=== PATIENT | female | born 1950 | race Caucasian/White ===

== ENCOUNTER 2025-01-03 15:08 | Outpatient (AMB) | payer MEDICARE, SELFPAY ==
--- NOTE | 2025-01-03 15:07 | A.OFFVIS_ITS ---
Vital Signs 01/03/25 15:09 Height 5 ft 9 in Weight 182 lb 15.739 oz BMI 27.0 BP 124/70 Blood Pressure Location Lt brachial Position Sitting Pulse 87 Pulse Source Pulse Oximeter Pulse Oximetry (%) 95 Oxygen Delivery Method Room Air Intake Visit Reasons: Emphysema Food Preparation Supervisor Required: No Accompanied by: Self / Same As Patient Allergies No Known Allergies Allergy (Verified 01/03/25 15:10) HPI Comments Details: The patient is here for pulmonary evaluation. The patient is a 74 year woman with a known history of smoking in addition to COPD. The patient was taking part of the lung cancer screening program when she was found to have a nodular density on the left. 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 The biopsy also showed pulmonary fibrosis due to smoking and also emphysema. The patient was able to quit for some period of time but then she picked it up again. She has a hard time letting go. As far as inhalers she is not using any inhalers. She does have a dyspnea on exertion. [id number] severity. She lives in a 2nd story apartment so she is able to go up the stairs but she would have a hard time going up further as floors. The patient does have a cough which is congested in nature. Consistent with chronic bronchitis. The patient does have some diminished breath sounds with a prolonged expiratory phase. She will benefit from starting bronchodilator therapy. I will start her on Wixela at this time. The patient also should undergo pulmonary function studies will have him done in June since she had them done in June 2024. She will return done. As far as smoking cessation she will start cutting down. She can try the Nicotrol nasal spray to provide her some relief with the cravings. [facility] Medical History (Updated 01/03/25 @ 22:11 by Goran Morillo MD) Tobacco dependence COPD (chronic obstructive pulmonary disease) Lung cancer Social History (Updated 01/03/25 @ 15:11 by Geetha Kirk CMA) Patient Tobacco Use Status: Current everyday Tobacco user Review of Systems Const Denies fever(s) Eyes Reports no additional complaints ENT Reports nasal congestion Card Denies chest pain and Reports dyspnea on exertion Resp Reports chest congestion, Reports cough and Reports dyspnea on exertion GI Reports no additional complaints Musc Reports no additional complaints Skin/Breast Denies rash Neuro Reports no additional complaints Endo Reports no additional complaints Jose/Lymph Reports no additional complaints Aller/Immun Reports no additional complaints Physical Exam Vital Signs: Last Vital Signs Pulse 87 01/03/25 15:09 BP 124/70 01/03/25 15:09 Pulse Ox 95 01/03/25 15:09 Oxygen Delivery Method Room Air 01/03/25 15:09 BMI result Body Mass Index 27.0 Const General: comfortable Orientation/consciousness: patient oriented x3 HEENT Head: Yes normocephalic Neck Neck: Yes supple Chest Chest palpation & inspection: normal inspection of the chest Resp Effort & Inspection: normal respiratory effort and prolonged expiratory phase Auscultation: diminished lung sounds Cardio Rate: regular rate Rhythm: regular rhythm Heart sounds: S1 normal heart sound present and S2 normal heart sound present GI Palpation (GI): Soft to palpation General: Yes no CVA tenderness Back/Spine/Pelvis Back: no CVA tenderness Skin General skin exam: no rashes or lesions noted Neuro General: patient oriented x3 Extrem General: Yes no clubbing, cyanosis or edema Assessment & Plan Assessment & Plan (1) Lung cancer: Code(s): C34.90 - Malignant neoplasm of unspecified part of unspecified bronchus or lung Category: Medical Qualifiers: Laterality: left Lung location: unspecified part of lung Qualified Code(s): C34.92 - Malignant neoplasm of unspecified part of left bronchus or lung (2) COPD (chronic obstructive pulmonary disease): Code(s): J44.9 - Chronic obstructive pulmonary disease, unspecified Category: Medical Qualifiers: COPD type: chronic bronchitis Chronic bronchitis type: mucopurulent Qualified Code(s): J41.1 - Mucopurulent chronic bronchitis (3) Tobacco dependence: Code(s): F17.200 - Nicotine dependence, unspecified, uncomplicated Category: Medical Plan Start Wixela Consider YARA Tobacco cessation Nicotrol nasal spray F/U 4-6 months with PFTs Orders: Orders PFT pulmonary function test 06/29/25 J41.1 - Mucopurulent chronic bronchitis Medications: New nicotine (Nicotrol NS) administer into each nostril 1 spray intranasal Q4H PRN 40 mL 6RF nicotine cravings 30 days fluticasone propion-salmeterol 250-50 mcg/dose (Wixela Inhub) 1 inh inhalation Q12H 60 ea 11RF 30 days Coding Level of Care Code New Pt Level 4 (94020) Diagnoses Malignant neoplasm of left lung, unspecified part of lung C34.92 Laterality: left Lung location: unspecified part of lung Mucopurulent chronic bronchitis J41.1 COPD type: chronic bronchitis Chronic bronchitis type: mucopurulent Tobacco dependence F17.200 Time Spent (min) 36
[2025-01-03 15:09] VITALS: BP 124/70; PULSE 87; O2SAT 95; BMI 27.0
--- OUTSIDE RECORDS SUMMARY | 2025-01-03 17:29 | XMS_ITS ---
Author Organization [facility] Address [address] [place] [address] Phone Care Team Providers Care Line Up Machine Operator Name Role Phone Bayron Barkley MD Primary Care Provider [phone] Active Problems Problem Noted Date Diagnosed Date Atrial fibrillation (CMS/HCC V24, CMS/HCC V28) 0 08/10/2024 Assessment & Plan (11/23/2024 8:07 AM EDT): Patient had intermittent episodes of atrial fibrillation postoperatively. EKG done in the office today shows normal sinus rhythm with a well-controlled rate of 73 bpm. She remains on Eliquis for [id number] score of 3. She denies abnormal bruising or bleeding. No change to current medical therapy, continue Eliquis and diltiazem as prescribed. Assessment & Plan (08/11/2024 10:20 AM EDT): Patient had intermittent episodes of atrial fibrillation postoperatively. EKG done in the office today shows a normal sinus rhythm with a rate of 70 bpm. She is on Eliquis for [id number] score of 3. She denies abnormal bruising or bleeding. I discussed with the patient the risks versus benefits of continuing on anticoagulation. She was asymptomatic when in A-fib. I recommended continuing with Eliquis and diltiazem as prescribed. She did have some concerns about affordability of Eliquis and I discussed alternative of Coumadin. She would like to continue on Eliquis for now. I recommended meeting with a DOE counselor at her local [facility] who may be able to assist her in obtaining part D Medicare coverage that suits her needs best. History of lung cancer 07/29/2024 Assessment & Plan (07/29/2024 9:01 AM EDT): Ms. Caro is a 74-year-old female who had a robotic left upper lobectomy on July 16, 2024. She did develop paroxysmal atrial fibrillation postoperatively and was sent home on Eliquis. Postoperative pathology shows a stage Ib (pT2a, pN0) squamous cell carcinoma. The patient appears to be healing well from surgery. There are no signs or symptoms of active infection or significant complication. Her pathology was discussed at length during this visit. I will be referring the patient to medical oncology for discussion regarding adjuvant treatment. I also discussed surveillance and survivorship with the patient. The patient will be having CT surveillance every 6 months for the first 2 years following her diagnosis, then annually. She will be seen in the office after each CT scan as part of her surveillance protocol. I will arrange for her first surveillance chest CT scan to be done in December 2024 with a follow-up visit after. Preoperative evaluation to thad kime out surgical contraindication 07/15/2024 Assessment & Plan (07/15/2024 5:08 PM EDT): She is scheduled to have surgery for resection of a lung nodule which is suspicious for lung cancer tomorrow. She has no symptoms to suggest angina or heart failure. The surgery itself carry moderate risk but functional capacity is adequate. Despite severe coronary artery calcification, I will hold further ischemia workup to avoid delay of her surgery. She never had a cardiac imaging previously. I will schedule echocardiogram. Echocardiogram showed normal biventricular size and systolic function without obvious disease. Overall, she is cleared for surgery from a cardiac standpoint view. Coronary artery calcification 07/15/2024 Assessment & Plan (11/23/2024 8:08 AM EDT): LDCT scan demonstrated severe coronary artery calcifications. She had a pharmacological nuclear stress test August 2024. She had no chest pain or EKG changes consistent with ischemia and myocardial perfusion imaging showed no significant perfusion defects after CT attenuation correction was applied. She denies anginal symptoms. No change to current medical therapy, continue aspirin and atorvastatin as prescribed. Continue with efforts to follow a low fat, heart healthy diet, increase exercise, stopping smoking and maintain a healthy weight to maximize risk reduction. Assessment & Plan (08/11/2024 10:21 AM EDT): LDCT scan demonstrated severe coronary artery calcifications. She is not experiencing any symptoms to suggest angina. She is still recovering from lung surgery. She does have a longstanding chronic shortness of breath with exertion. I will order an exercise nuclear stress test to be done in about 1 month to assess for coronary insufficiency. Low threshold to convert to a pharmacological stress test if she is unable to tolerate the treadmill. I have asked her to start low-dose aspirin and continue on atorvastatin as prescribed. Assessment & Plan (07/15/2024 5:08 PM EDT): She will need a stress test after recovery from surgery. Will continue statin. Will start aspirin after surgery. Other hyperlipidemia 07/15/2024 Assessment & Plan (07/15/2024 5:08 PM EDT): Continue high-dose statin. Pulmonary nodule 03/23/2024 Overview (03/23/2024): She was informed that a follow-up CT was recommended in 3 months. She will be hearing from our office with the above diagnostic testing and will be scheduled for an appointment with an TOMEKA in our office to discuss the CT scan results and further plan. Assessment & Plan (07/15/2024 2:16 PM EDT): Orders: Ambulatory referral to Cardiology Current Treatment and Therapy Plans No current plan information found. Past Treatment and Therapy Plans No past plan information found. Lifetime Dose Tracking * Chemical Lifetime Dose Automatic Entry Manual Entr y CTDIvol 9.66 mGy 9.66 mGy 0 mGy Resolved Problems Problem Noted Date Diagnosed Date Resolved Date Lung cancer ([facility] V24, [facility] V28) 07/16/2024 07/29/2024
--- OUTSIDE RECORDS SUMMARY | 2025-01-03 17:29 | XMS_ITS ---
Author Name [facility] Organization Unknown Encounters Encounter Type Encounter Reason Primary Diagnosis Location Date Emergency Unspecified fall, initial encounter Unspecified fall, initial encounter [facility] 09/08/2023 Care Team Organization Name Specialty Phone Email Start Date End Da te [facility] 09/09/2023 06/16/2024 [facility] 09/09/2023
--- OUTSIDE RECORDS SUMMARY | 2025-01-03 17:29 | XMS_ITS | Clinical Summary ---
Author Organization [facility] Address [address] [place] [id number] Care Team Providers Care Radiosonde Specialist Name Role Phone Bayron Barkley MD Primary Care Provider [phone] Allergies No known active allergies Medications acetaminophen (TYLENOL) 325 MG tablet Take 3 tablets (975 mg total) by mouth 3 times daily (every 8 hours) as needed for mild pain. 63 tablet 09/09/2023 Active Immunizations Immunization Administration Dates Next Due Tdap 09/08/2023 Social History Tobacco Use Types Packs/Day Years Used Date Smoking Tobacco: Never Assessed Comments No Sex and Gender Information Value Date Recorded Sex Assigned at Female 09/09/2023 12:03 AM EDT Legal Sex Female 9:50 PM EDT Gender Identity Female 09/09/2023 12:03 AM EDT Sexual Orientation Not on file Last Filed Vital Signs Vital Sign Reading Time Taken Comments Blood Pressure 130/70 09/09/2023 12:09 AM EDT Pulse 83 09/09/2023 12:09 AM EDT Temperature 36.4 C (97.6 F) 09/08/2023 9:58 PM EDT Respiratory Rate 20 09/09/2023 12:09 AM EDT Oxygen Saturation 95% 09/09/2023 12:09 AM EDT Inhaled Oxygen Concentration - - Weight 86.2 kg (190 lb) 09/08/2023 9:58 PM EDT Height 177.8 cm (5' 10 ) 09/08/2023 9:58 PM EDT Body Mass Index 27.26 09/08/2023 9:58 PM EDT Plan of Treatment Health Maintenance Due Date Last Done Comments Advance Care Planning 1950 Hepatitis C Virus Screening 1950 Pneumococcal Vaccines 50+ (1 of 2 - PCV) 1967 Zoster (Shingles) Vaccine (1 of 2) 1998 DXA Bone Density (Females,Ag es 65 and older) 2013 RSV Vaccine 60 years and old er and Patients (1 - 1-dose 75+ series) 2023 Influenza Vaccine 10/29/2024 COVID-19 Vaccine (2 - 2024-2 6 season) 2024 03/03/2021 DTaP/Tdap/Td Vaccines (2 - T d or Tdap) 09/07/2033 09/08/2023 Hepatitis B Vaccines Aged Out No long er eligible based on patient's age to complete this topic Insurance [employer] Care Teams Radiosonde Specialist Relationship Specialty Start Date End Date Bayron Barkley MD [address] [place] [address] PCP - General Internal Medicine 09/09/23
--- OUTSIDE RECORDS SUMMARY | 2025-01-03 17:29 | XMS_ITS | Clinical Summary ---
Author Organization [facility] Address [address] [place] [address] Phone Care Team Providers Care Physician Relations Specialist Name Role Phone Bayron May MD Primary Care Provider [phone] Allergies No known active allergies Medications atorvastatin (LIPITOR) 40 mg tablet Take 40 mg by mouth daily. Active apixaban (ELIQUIS) 5 mg tablet Take 1 tablet (5 mg total) by mouth 2 (two) times a day. 60 tablet 11 08/11/2024 Active dilTIAZem CD (CARDIZEM CD) 180 mg 24 hr capsule Take 1 capsule (180 mg total) by mouth 1 (one) time each day. 90 each 3 08/11/2024 Active aspirin 81 mg EC tablet Take 1 tablet (81 mg total) by mouth 1 (one) time each day. 08/11/2024 Active Active Problems Problem Noted Date Diagnosed Date Atrial fibrillation (CMS/HCC V24, CMS/HCC V28) 0 08/10/2024 Assessment & Plan (11/23/2024 8:07 AM EDT): Patient had intermittent episodes of atrial fibrillation postoperatively. EKG done in the office today shows normal sinus rhythm with a well-controlled rate of 73 bpm. She remains on Eliquis for DYP0KH2-MANk score of 3. She denies abnormal bruising or bleeding. No change to current medical therapy, continue Eliquis and diltiazem as prescribed. Assessment & Plan (08/11/2024 10:20 AM EDT): Patient had intermittent episodes of atrial fibrillation postoperatively. EKG done in the office today shows a normal sinus rhythm with a rate of 70 bpm. She is on Eliquis for [id number]-XRWu score of 3. She denies abnormal bruising [...] for now. I recommended meeting with a NEREYDA counselor at her local [facility] who may be able to assist her in obtaining part D Medicare coverage that suits her needs best. History of lung cancer 07/29/2024 Assessment & Plan (07/29/2024 9:01 AM EDT): Ms. Espinosa is a 74-year-old female who had a [...] PM EDT): Orders: Ambulatory referral to Cardiology Resolved Problems Problem Noted Date Diagnosed Date Resolved Date Lung cancer ([facility] V24, [facility] V28) 07/16/2024 07/29/2024 Encounters Date Type Department Care Team Description 01/03/2025 Telephone Lung Screening Program - [place] [address] [place] [address] Yolanda Blair [place] 11/23/2024 7:40 AM EDT Office Visit [facility] [address] [facility] [address] [place] [phone] Loree Saucedo NP Coronary artery calcification (Primary Dx); Atrial fibrillation, unspecified type ([facility] V24, [facility] V28) from Last 3 Months Surgical History Surgery Date Site/Laterality Comments CATARACT EXTRACTION COLONOSCOPY LUNG LOBECTOMY 07/16/2024 Left AMILCAR wedge / lobectomy Medical History Medical History Date Comments Hypercholesterolemia Lung nodule left upper lobe Lung cancer ([facility] V24, [facility] V28) AMILCAR Family History Medical History Relation Name Comments Breast cancer Daughter Breast cancer Mother's Sister Relation Name Status Comments Daughter Mother's Sister Alive Social History Tobacco Use Types Packs/Day Years Used Date Smoking Tobacco: Every Day Cigarettes Smokeless Tobacco: Never Tobacco Cessation:Ready to Q uit: Not Asked; Counseling Given: Not Answered Passive Exposure Comments: quit a couple days ago Interpersonal Safety Answer Date Record ed Physical Abuse Unrecognized value 07/16/2024 Verbal Abuse Unrecognized value 07/16/2024 Comments No Sex and Gender Information Value Date Recorded Sex Assigned at Female 03/11/2024 1:15 PM EST Legal Sex Female 6:05 PM EST Gender Identity Female 03/11/2024 1:15 PM EST Sexual Orientation Lesbian or Briseno 07/16/2024 9: 19 AM EDT Obstetrics History Para Term AB IAB SAB Ectopic Multiple Livin g Live Births 2 Last Filed Vital Signs Vital Sign Reading Time Taken Comments Blood Pressure 106/60 11/23/2024 7:40 AM EDT Pulse 82 11/23/2024 7:40 AM EDT Temperature 36.6 C (97.9 F) 08/11/2024 1:54 PM EDT Respiratory Rate 20 07/20/2024 3:45 PM EDT Oxygen Saturation 94% 11/23/2024 7:40 AM EDT Inhaled Oxygen Concentration - - Weight 82.6 kg (182 lb) 11/23/2024 7:40 AM EDT Height 175.3 cm (5' 9 ) 11/23/2024 7:40 AM EDT Body Mass Index 26.88 11/23/2024 7:40 AM EDT Plan of Treatment Upcoming Encounters Date Type Department Care Team (Late st Contact Info) Description 01/24/2025 2:00 PM EDT Appointment [facility] CT Scan [address] [place] [address] 01/31/2025 10:00 AM EST Office Visit Thoracic Surgery - [place] [address] [address] Marylu Loaiza PA [address] [address] 02/18/2025 9:45 AM EST Office Visit [facility] Hematology Oncology [address] [place] [address] Michael Wright MD [address] [place] [address] Health Maintenance Due Date Last Done Comments Pneumococcal Vaccine: 50+ Years (1 of 2 - PCV) 1969 Cholesterol Screening (Lipid Panel) 03/10/2022 Hepatitis C Screening 03/10/2022 Medicare Annual Wellness Visit 03/10/2022 Social Influencers of Health Screening 03/10/2022 RSV Immunization Adult Patients (1 - 1-dose 75+ series) 2023 Depression Screening 03/31/2024 COVID-19 Vaccine ( season) 2024 03/03/2021, 08/05/2020, 07/08/2020 Influenza Vaccine (#1) 2024 Falls Risk Assessment 07/20/2025 07/20/2024 Hypertension/CHF/CAD Annual BMP Blood Test 07/20/2025 07/20/2024, 07/18/2024, 07/16/2024, Additional history exists Osteoporosis Screening (Bone Density Screening) 10/15/2032 10/15/2022 DTaP,Tdap,and Td Vaccines (2 - Td or Tdap) 09/07/2033 09/08/2023 Hepatitis A Vaccines Aged Out 03/16/2018 No long er eligible based on patient's age to complete this topic Zoster Vaccines Completed 03/27/2021, 12/31/2020 Breast Cancer Screening Discontinued 04/12/19, 10/15/2022, 06/10/2018 HIB Vaccines Aged Out No longer eligi ble based on patient's age to complete this topic HPV Vaccines Aged Out No longer eligi ble based on patient's age to complete this topic Hepatitis B Vaccines Aged Out No long er eligible based on patient's age to complete this topic IPV Vaccines Aged Out No longer eligi ble based on patient's age to complete this topic MMR Vaccines Aged Out No longer eligi ble based on patient's age to complete this topic Meningococcal ACWY Vaccine Aged Out N o longer eligible based on patient's age to complete this topic Meningococcal B Vaccine Aged Out No l onger eligible based on patient's age to complete this topic RSV Immunization Patients Under 20 months Aged Out No longer eligible based on patient's age to complete this topic Varicella Vaccines Aged Out No longer eligible based on patient's age to complete this topic Medical Devices Implanted Type Area Milling Operator Device Identifier Shelf Expiration Date Model / Serial / Lot Sealant Fibrin Vistaseal 10ml - [id number] - [id number] Implanted:Qty: 1 on 07/16/2024 by Татьяна Kirkland MD at [facility] Hemostasis Left: Chest [employer] 01/26/2026 VST10 / [id number] / [id number] Drsg Hemostat 4x8in Abs Ster Surgicel - Sn/A - [id number] Implanted:Qty: 1 on 07/16/2024 by Татьяна Kirkland MD at [facility] Hemostasis Left: Chest [employer] 1952 / N/A / N/A Sealant Progel Air Pleural 4ml - Sn/A - [id number] Implanted:Qty: 1 on 07/16/2024 by Татьяна Kirkland MD at [facility] [employer] Left: Chest CR BARD - [employer]OL [employer] 12/29/2025 [id number] / N/A / [id number] Procedures Procedure Name Priority Date/Time Associated Diagnosis Comments ECG 12-LEAD Routine 11/23/2024 8:09 AM EDT Coronary artery calcification Atrial fibrillation, unspecified type (CMS/HCC V24, CMS/HCC V28) BASIC METABOLIC PANEL Routine 07/20/2024 5:40 AM EDT MG MAMMO DIGITAL SCREENING W ABHILASH BILAT Routine 04/12/2024 7:25 AM EST Encounter for screening mammogram for breast cancer KAI DEXA AXIAL SKELETON Routine 10/15/2022 10:02 AM EDT Other specified disorders of bone density and structure, other site from Last 3 Months or Most Recently Relevant to Health Maintenance Results * ECG 12 lead (11/23/2024 8:09 AM EDT) Ventricular Rate ECG 73 BPM GEMUSE Atrial Rate 73 BPM GEMUSE P-R Interval 200 ms GEMUSE QRS Duration 90 ms GEMUSE Q-T Interval 394 ms GEMUSE QTc 434 ms GEMUSE P Wave [place] 46 degrees GEMUSE R [place] 58 degrees GEMUSE T [place] 59 degrees GEMUSE ECG Interpretation Normal sinus rhythm Normal ECG When compared with ECG of 11-AUG-2024 09:38, No significant change was found Confirmed by Carlos SALGADO JOHN ([id number]) on 11/28/2024 4:50:28 PM GEMUSE 11/23/2024 8:01 AM EDT 11/28/2024 4:50 PM EDT Loree Lewis HEADLINER INSTALLER ECG ORDERABLES Edited Result - Final GEMUSE * (ABNORMAL) Basic metabolic panel (07/20/2024 5:40 AM EDT) Sodium 139 133 - 145 mmol/L LAB CHEMISTRY METHOD 07/20/2024 6:48 AM [facility] Potassium 4.1 3.5 - 5.5 mmol/L LAB CHEMISTRY METHOD 07/20/2024 6:48 AM [facility] Chloride 105 96 - 110 mmol/L LAB CHEMISTRY METHOD 07/20/2024 6:48 AM [facility] CO2 28 21 - 32 mmol/L LAB CHEMISTRY METHOD 07/20/2024 6:48 AM [facility] Anion Gap 6 3 - 11 LAB CHEMISTRY METHOD 07/20/2024 6:48 AM [facility] Glucose 110(H) 70 - 100 mg/dL LAB CHEMISTRY METHOD 07/20/2024 6:48 AM [facility] BUN 14 5 - 25 mg/dL LAB CHEMISTRY METHOD 07/20/2024 6:48 AM [facility] Creatinine 0.90 0.50 - 1.10 mg/dL LAB CHEMISTRY METHOD 07/20/2024 6:48 AM [facility] eGFR 66 >=60 mL/min/1. 73m2 LAB CHEMISTRY METHOD 07/20/2024 6:48 AM [facility] Comment:Calculation based on the Chronic Kidney Disease Epidemiology Collaboration (CKD-EPI) equation refit without adjustment for race. BUN/Creatinine Ratio 15.6 LAB CHEMISTRY METHOD 07/20/2024 6:48 AM [facility] Calcium 8.8 8.5 - 10.5 mg/dL LAB CHEMISTRY METHOD 07/20/2024 6:48 AM [facility] Blood Venous blood specimen / Unknown Venipuncture / Unknown 07/20/2024 5:40 AM EDT 07/20/2024 6:13 AM EDT us Rui Perry MD LAB BLOOD ORDERABLES Final Resul t [facility] [address] [facility] [place] [address], [place] [phone] * MG Mammo Digital Screening w Abhilash bilat (04/12/2024 7:25 AM EST) Anatomical Region Laterality Modality Breast Bilateral Mammography 04/12/2024 8:58 AM EST Impressions 04/12/2024 9:04 AM EST No mammographic evidence of malignancy. No suspicious interval change. A negative mammogram in the presence of a clinically suspicious palpable abnormality does not preclude the possibility of malignancy or alter the indications for biopsy. ASSESSMENT: BI-RADS 1: NEGATIVE RECOMMENDATION(S): 1: Routine screening mammogram BILATERAL in 1 year. -------- FINAL REPORT -------- Dictated By: Roshan Montaño Dictated Date: 04/12/2024 08:58 ET Assigned Physician: Roshan Montaño Reviewed and Electronically Signed By: Roshan Montaño Signed Date: 04/12/2024 09:04 ET Workstation ID: [id number] Transcribed By: Self Edit Transcribed Date: 04/12/2024 08:58 ET Narrative 04/12/2024 9:04 AM EST EXAM: SCREENING MAMMOGRAPHY, BILATERAL HISTORY: SCREENING. Family history of breast cancer; daughter, maternal aunt COMPARISON: 10/15/2022 TECHNIQUE: Synthesized CC and MLO projections of each breast. Tomosynthesis of each breast in the CC and MLO projections. ADDITIONAL IMAGING: None Computer-aided detection was employed with the iCAD profound AI 3-D. TISSUE DENSITY: There are scattered areas of fibroglandular density. (BI-RADS category B) FINDINGS: RIGHT BREAST: No suspicious mass. No suspicious calcification. No distortion. No additional suspicious right breast findings LEFT BREAST: No suspicious mass. No suspicious calcification. No distortion. An asymmetry in the superficial outer left breast is less prominent than 10/15/2022. Procedure Note Roshan Montaño MD - 04/12/2024 EXAM: SCREENING MAMMOGRAPHY, BILATERAL HISTORY: SCREENING. Family history of breast cancer; daughter, maternalaunt COMPARISON: 10/15/2022 TECHNIQUE: Synthesized CC and MLO projections of each breast.Tomosynthesis of each breast in the CC and MLO projections. ADDITIONAL IMAGING: None Computer-aided detection was employed with the iCAD profound AI 3-D. TISSUE DENSITY: There are scattered areas of fibroglandular density.(BI-RADS category B) FINDINGS: RIGHT BREAST: No suspicious mass. No suspicious calcification. No distortion. Noadditional suspicious right breast findings LEFT BREAST: No suspicious mass. No suspicious calcification. No distortion. An asymmetry in the superficial outer left breast is less prominent than10/15/2022. IMPRESSION: No mammographic evidence of malignancy. No suspicious interval change. A negative mammogram in the presence of a clinically suspicious palpableabnormality does not preclude the possibility of malignancy or alter theindications for biopsy. ASSESSMENT: BI-RADS 1: NEGATIVE RECOMMENDATION(S): 1: Routine screening mammogram BILATERAL in 1 year. -------- FINAL REPORT -------- Dictated By: Roshan Montaño Dictated Date: 04/12/2024 08:58 ET Assigned Physician: Roshan Montaño Reviewed and Electronically Signed By: Roshan Montaño Signed Date: 04/12/2024 09:04 ET Workstation ID: [id number] Transcribed By: Self Edit Transcribed Date: 04/12/2024 08:58 ET us Self Referral Sppl IMG BI PROCEDURES Final Resul t * KAI DEXA AXIAL SKELETON (10/15/2022 10:02 AM EDT) Anatomical Region Laterality Modality Mammography 10/15/2022 9:08 AM EDT Narrative 10/15/2022 10:02 AM EDT [facility] Diagnostic Imaging Department [address] [place] [address] Patient: SELMA ESPINOSA /Age/Sex: 1950 72 - F Unit#: [id number] Location/Status: SPDIMAM/REG CLI [facility] Ordering Physician: BAYRON MAY MD Kai Dexa Axial Skeleton - 10/15/2243 Report Status:Signed HISTORY: The patient is a 72-year-old postmenopausal female smoker with clinical concern for metabolic bone disease. FINDINGS: Dual energy x-ray absorptiometry of the lumbar spine and femurs is performed. The mean bone mineral density at L1-L4 is 1.155 gm/cm2 which is 98% of that of young normals and 110% of that of age matched controls. This yields a T-score of -0.2 and a Z-score of 0.9 and there is therefore no evidence of osteoporosis or osteopenia here. The mean bone mineral density of the femurs bilaterally is 0.809 gm/cm2 which is 80% of that of young normals and 95% of that of age matched controls. This yields a T-score of -1.6 and a Z-score of -0.3 which is diagnostic of osteopenia. The T-score of the right femoral neck is -1.7 and that of the left femoral neck is -1.9 which is diagnostic of osteopenia. IMPRESSION: 1. Osteopenia. There has been an increase of 9.2% in bone mineral density in the lumbar spine since the prior examination of 08/21/2016. There has been a decrease of 5.8% in bone mineral density in the right femur and a decrease of 10.9% in bone mineral density in the left femur. 2. FRAX analysis yields a 10-year probability of major osteoporotic fracture of 18.2% and a 10-year probability of hip fracture of 5.7%. Code 89069 Dictating Physician: REGIS SHARMA MD Electronically Signed by: REGIS SHARMA MD Dic Date/Time: 10/15/22 0959 Sign date/Time: 10/15/22 1002 Procedure Note Regis Sharma MD - 05/06/2023 [facility] Diagnostic Imaging Department [address] [place] [address] Patient: ANA ROSA ESPINOSAHIE Rose Arroyo./Age/Sex: 1950 - 72 - F Unit#: [id number] [facility] Ordering Physician: BAYRON MAY MD Kai Dexa Axial Skeleton - 10/15/22942 Report Status:Signed HISTORY: The patient is a 72-year-old postmenopausal female smoker with clinical concern for metabolic bone disease. FINDINGS: Dual energy x-ray absorptiometry of the lumbar spine and femursis performed. The mean bone mineral density at L1-L4 is 1.155 gm/cm2 which is98% of that of young normals and 110% of that of age matched controls. Thisyields a T-score of -0.2 and a Z-score of 0.9 and there is therefore no evidenceof osteoporosis or osteopenia here. The mean bone mineral density of the femurs bilaterally is 0.809 gm/an3ayagk is 80% of that of young normals and 95% of that of age matched controls.This yields a T-score of -1.6 and a Z-score of -0.3 which is diagnostic of osteopenia. The T-score of the right femoral neck is -1.7 and that of theleft femoral neck is -1.9 which is diagnostic of osteopenia. IMPRESSION: 1. Osteopenia. There has been an increase of 9.2% in bone mineral densityin the lumbar spine since the prior examination of 08/21/2016. There has sherry decrease of 5.8% in bone mineral density in the right femur and a decreaseof 10.9% in bone mineral density in the left femur. 2. FRAX analysis yields a 10-year probability of major osteoporoticfracture of 18.2% and a 10-year probability of hip fracture of 5.7%. Code 86024 Dictating Physician: REGIS SHARMA MD Electronically Signed by: REGIS SHARMA MD Dic Date/Time: 10/15/22 0959 Sign date/Time: 10/15/22 1002 Bayron May MD IMG BI PROCEDURES Final Result from Last 3 Months or Most Recently Relevant to Health Maintenance Insurance [employer] Advance Directives * Full Code - Default (Latest Code Status on File) Date Activated Date Inactivated Comments 07/16/2024 9:24 PM 07/20/2024 7:08 PM This is orde r is used when code status has not been discussed with the patient, or code status is otherwise unknown/unconfirmed To update the patient's code status, place a code status order. Do not modify or discontinue any currently active code status orders. * Full Code - Default Date Activated Date Inactivated Comments 07/16/2024 9:35 AM 07/16/2024 9:24 PM This is orde r is used when code status has not been discussed with the patient, or code status is otherwise unknown/unconfirmed To update the patient's code status, place a code status order. Do not modify or discontinue any currently active code status orders. Care Teams Physician Relations Specialist Relationship Specialty Start Date End Date Bayron May MD [address] [place] [address] PCP - General Internal Medicine 02/10/18
--- OUTSIDE RECORDS SUMMARY | 2025-01-03 17:29 | XMS_ITS | Encounter Summary ---
Author Organization [facility] Address [address] [place] [address] Care Team Providers Care Automotive Dismantler Name Role Phone Bayron Barkley MD Primary Care Provider [phone] Reason for Visit * Reason Onset Date Comments Appointment 01/03/2025 1st Notification Encounter Details Date Type Department Care Team (Late st Contact Info) Description 01/03/2025 Telephone Lung Screening Program - [address] [place] [phone] Yolanda Blair [place] Social History Tobacco Use Types Packs/Day Years Used Date Smoking Tobacco: Every Day Cigarettes Smokeless Tobacco: Never Passive Exposure Comments: q uit a couple days ago Interpersonal Safety Answer Date Record ed Physical Abuse Unrecognized value 07/16/2024 Verbal Abuse Unrecognized value 07/16/2024 Comments No Sex and Gender Information Value Date Recorded Sex Assigned at Female 03/11/2024 1:15 PM EST Legal Sex Female 6:05 PM EST Gender Identity Female 03/11/2024 1:15 PM EST Sexual Orientation Lesbian or Briseno 07/16/2024 9: 19 AM EDT documented as of this encounter Progress Notes * Yolanda Blair MA - 01/03/2025 2:48 PM EDT .Patient has been notified of the follow up appointment on 01/24/25 at 2 Pm and the follow up with Marylu Loaiza PA-C documented in this encounter Plan of Treatment Upcoming Encounters Date Type Department Care Team (Late st Contact Info) Description 01/24/2025 2:00 PM EDT Appointment [facility] CT Scan [address] [place] [address] 01/31/2025 10:00 AM EST Office Visit Thoracic Surgery - [place] [address] [address] Marylu Loaiza PA [address] [address] 02/18/2025 9:45 AM EST Office Visit [facility] Hematology Oncology [address] [place] [phone] Michael Wright MD [address] [place] [phone] documented as of this encounter Visit Diagnoses Not on filedocumented in this encounter Care Teams Automotive Dismantler Relationship Specialty Start Date End Date Bayron Barkley MD [address] [place] [phone] PCP - General Internal Medicine 02/10/18 documented as of this encounter
--- OUTSIDE RECORDS SUMMARY | 2025-01-03 17:29 | XMS_ITS | Patient Health Record ---
Author Organization [facility] Address [address] [place] [address] Care Team Providers Care Medicare Interviewer Name Role Phone FRANCIS MAY Primary Care Provider Lisa Turner Unavailable [phone] Allergies No Known Allergies Results Component Value Reference Range Notes CULTURE TISSUE WITH GRAM STA IN Reviewed date:07/21/2024 05:13:34 PM Interpretation: Performing Lab: Notes/Report: Culture, Tissue No growth aerobicall y and anaerobically at 5 days. Gram Stain Result No polymorphonuclear leukocytes, No epithelial cells, and No organisms noted XR CHEST 2 VIEWS Reviewed date:07/29/2024 04:56:45 PM Interpretation: Performing Lab: Notes/Report: Note See Note [facility], a member of [facility] Patient Name: SELMA ESPINOSA Date of : 1950 Reason for Exam: s/p 07/16/24 AMILCAR wedge / lobectomy Exam Date: 07/29/2024 [id number] EST Report Status: Final Ordering Provider: PURNIMA BATEMAN PCP: FRANCIS MAY EXAMINATION: CHEST CLINICAL INFORMATION: Post left upper lobectomy COMPARISON: Frontal view 07/20/24 TECHNIQUE: 2 views of the chest FINDINGS: Ectatic aortic arch. There is metallic suture adjacent to the left hilum. The cardiac size is within normal limits. The right hilum is within normal limits. No change in the left hilum. Interval removal of left chest tube. No definite pneumoth orax. A trace amount of extrapleural gas superolaterally on the left may be present. There is blunting of the left lateral costophrenic sulcus. No dense consolidati on in the right lung. IMPRESSION: Previous left upper lobectomy. Interval removal of left chest tube. Difficult to exclude a trace amount of extrapleural gas on the left. -------- FINAL REPOR T -------- Dictated By: Roshan Welch Dictated Date: 07/29 16:41 ET Assigned Physician: Roshan Montaño Reviewed and Electronically Signed By: Roshan Montaño Signed Date: 025 16:43 ET Workstation ID: [id number] Transcribed By: Self Edit Transcribed Date: 07/29/2024 16:41 ET CULTURE FUNGUS, OTHER THAN S KIN HAIR OR NAILS Reviewed date:08/16/2024 11:40:51 AM Interpretation: Performing Lab: Notes/Report: Culture, Fungus Negative for Fungus after 4 Weeks PD-L1, CLONE 22C3, IHC Reviewed date:08/11/2024 12:40:57 PM Interpretation: Performing Lab: Notes/Report: Scan Result See Scanned Result CULTURE, AFB AND SMEAR WITH REFLEX TO IDENTIFICATION AND SUSCEPTIBILITY Reviewed date:08/30/2024 12:35:57 PM Interpretation: Performing Lab: Notes/Report: Naval Architect: Viviane Alfredo MD, Phone: [phone] [address] [place] [phone] Performed at: [address] [place] [address] AFB Specimen Processing Concentration Acid Fast Smear Negative Acid Fast Culture Negative No acid fa st bacilli isolated after 6 weeks. ..CONCENTRATION Reviewed date:08/30/2024 12:35:51 PM Interpretation: Performing Lab: Notes/Report: Performed at: [address] [place] [id number] Naval Architect: Viviane Alfredo MD, Phone: [phone] AFB Concentration Performed TISSUE EXAM Reviewed date:08/09/2024 12:35:46 PM Interpretation: Performing Lab: Notes/Report: ADDITIONAL FINDINGS Additional Findings: Fibrosis: smoking related Additional Findings: Emphysema pN Category: pN0 pT Category: pT2a Reporting of pT, pN, and (when applicable) pM categories is based on information available to the pathologist at the time the report is issued. As per the AJCC (Chapter 1, 8th Ed.) it is the managing physician's responsibility to establish the final pathologic stage based upon all pertinent information, including but potentially not limited to this pathology report. pTNM CLASSIFICATION (AJCC Version 9) Agustina Site(s) Examined: 11L: Interlobar Agustina Site(s) Examined: 10L: Hilar Agustina Site(s) Examined: 9L: Pulmonary ligament Agustina Site(s) Examined: 5: Subaortic / aortopulmonary (AP) / AP window Number of Lymph Nodes Examined: 7 : All regional lymph nodes negative for tumor Regional Lymph Node Status: Lymph Node(s) from Prior Procedures: No known prior lymph node sampling performed REGIONAL LYMPH NODES Margin Status for Non-Invasive Tumor: Not applicable Distance from Invasive Tumor to Closest Margin: Greater than: 9 cm Closest Margin(s) to Invasive Tumor: Vascular Closest Margin(s) to Invasive Tumor: Bronchial Margin Status for Invasive Tumor: All margins negative for invasive tumor MARGINS Lymphatic and / or Vascular Invasion: Not identified Treatment Effect: No known presurgical therapy Direct Invasion of Other Structures: Not applicable (no other structures present) GRACIE Visceral Pleura Invasion: Present 10, two smaller lymph nodes in toto, two pieces Spread Through Air Spaces (PATRICIO): Present 9, largest quadrisected lymph node, four pieces Addendum electronically signed by Rudolph Romero MD on 08/09/2024 at 12:24 PM Histologic Grade: G2, moderately differentiated 4-8, uninvolved parenchyma, one piece each Histologic Type: Invasive squamous cell carcinoma, keratinizing 3, entire cystic area of fibrosis, two pieces Additional Dimension (Centimeters): 0.6 cm 2, and en face bronchial margin, one piece (Full report on file) Additional Dimension (Centimeters): 0.7 cm 1, en face vascular margins, four pieces Invasive Tumor Size: Greatest Dimension (Centimeters): 0.9 cm [employer] sections are submitted as follows: Report Date: 08/08/2024 11:50:49 AM ET Tumor Size: Labeled lung AMILCAR . Received in formalin is a 220 g, 15 x 9.5 x 5 cm left upper lobe with a 13.5 cm linear staple line along the anterior aspect. Additional lines extend from the hilum. The pleura is pink-purple, smooth and glistening. The anterior staple line is removed and the underlying parenchyma is inked green. The hilar staple lines are removed and the underlying parenchyma is inked black. The cut surfaces display 0.3 x 0.2 x 0.2 cm subpleural cystic area of fibrosis located 0.3 cm from the green inked anterior staple line. The uninvolved cut surfaces are red-brown and spongy with dilated airspaces particularly in the superior aspect. Multiple possible hilar lymph nodes are identified, ranging from 0.3 cm to 1.1 cm in greatest dimension. Leon Hendricks M.D. Tumor Site: Upper lobe of lung E. Lung, Left Upper Lobe, completion lobectomy: Electronic Signature Tumor Focality: Single focus Labeled ID: 4, mediastinum, left level . Received in formalin with a Telfa pad is a 0.8 x 0.5 x 0.5 cm disrupted anthracotic lymph node which is bisected and entirely submitted one cassette, two pieces. TUMOR D. Mediastinum, left level 11 lymph node: Intensity: 2+ Labeled ID: 3, mediastinum, level five . Received in formalin with a Telfa pad is a 1.6 x 1.1 x 0.6 cm anthracotic lymph node which is bisected and submitted in toto in one cassette, two pieces. Tumor Proportion Score: 35% Specimen Laterality: Left C. Mediastinum, level 5 lymph node: PD-L1 22C3 FDA for NSCLC: PD-L1 EXPRESSION Procedure: Completion lobectomy Labeled ID: 2, mediastinum, left level . Received in formalin with a Telfa pad is a 1.1 x 0.8 x 0.5 cm disrupted anthracotic lymph node which is bisected and entirely submitted in one cassette, two pieces. Procedure: Wedge resection B. Mediastinum, left level 9 lymph node: Results: SPECIMEN 6, uninvolved, two pieces 2-5, remainder of nodule, one piece each PD-L1 22C3 FDA for NSCLC AJCC 9 - Protocol posted: 03/10/2024 1, frozen section remnant, nodule, one piece Histology Analysis LUNG - All Specimens FS = Non small cell cancer Labeled lung AMILCAR . Received fresh for frozen section diagnosis is a 16 g, 10.5 x 2 x 2 cm lung wedge with an irregular staple line along one edge. The pleura is pink-purple, smooth and glistening. The staple line is removed and the underlying parenchyma is inked black. The cut surfaces display a 0.9 x 0.7 x 0.6 cm irregular, sosa-yellow, firm, fairly well-defined nodule located 0.1 cm from the inked stapled margin and abutting the pleura. The uninvolved parenchyma is pink-red and spongy. A community engagement representative section is submitted for frozen section diagnosis. Additional community engagement representative sections are submitted as follows: Final Diagnosis A. Lung, Left Upper Lobe, lung wedge: -INVASIVE SQUAMOUS CELL CARCINOMA, KERATINIZING, MODERATELY DIFFERENTIATED B. Mediastinum, left level 9 lymph node: -BENIGN LYMPH NODE C. Mediastinum, level 5 lymph node: -BENIGN LYMPH NODE D. Mediastinum, left level 11 lymph node: -BENIGN LYMPH NODE E. Lung, Left Upper Lobe, completion lobectomy: -EMPHYSEMA -FIBROSIS, CONSISTENT WITH SMOKING RELATED FIBROSIS -Negative for malignancy Addendum This case was sent t o [facility], [address] [place], (CLIA #[id number]) for PD-L1 22C3 FDA for NSCLC studies. Their diagnosis is as follows: Gross Description A. Lung, Left Upper Lobe, lung wedge: Intraoperative Consultation A. Lung, Left Upper Lobe, lung wedge: Synoptic Checklist LUNG Disclaimer Unless otherwise specified, all tissue is 10% NB formalin fixed and paraffin embedded. PET CT SKULL TO MID THIGH IN ITIAL Reviewed date:07/05/2024 12:26:56 PM Interpretation: Performing Lab: Notes/Report: Note See Note [facility], [facility] Patient Name: SELMA ESPINOSA Date of : 1950 Reason for Exam: Lung nodule, > 8mm Exam Date: 07/02/2024 [id number] EST Report Status: Final Ordering Provider: REZA STEPHENS PCP: FRANCIS MAY INDICATION: Lung nod ule, > 8mm TECHNIQUE: FDG PET-C T imaging was performed from the skull bases through the thighs in a single acquisition with data set reconstructed in axial, coronal, and sagittal planes at the computer workstation with fused data from both the PET imaging study and attenuation correction CT. The CT portion of the examination was done strictly for attenuation correction and is not a true diagnostic CT examination. DLP: 807 mGy-cm Radiopharmaceutical: 11.5 mCi of F-18 FDG IV. Blood glucose: 125 mg/dl. COMPARISON: Prior ch est CT May 2024 FINDINGS: HEAD AND NECK: No abnormal FDG activity. THORAX: Left upper l obe anterior nodule SUV max 3.8. Right middle lobe nodule/opacity SUV max 2.0. Interval clearing wi th few remaining nodular opacities in the right upper lobe SUV max 2.6. Previously seen tree-in-bud opacities in the left lower lobe are slightly decreased from prior. Few nonspecific tree-in-bud opacities in the lingula and left lower lobe SUV max 2.0. Right paratracheal l ymph nodes SUV max 2.6, subcarinal SUV max 2.1. No significant hilar activity. No significant FDG avid axillary lymph nodes. Mediastinal blood pool SUV Max 3.2. ABDOMEN/PELVIS: Nonspecific activity within the anal canal SUV max 5.8. Previously seen low-attenuation lesion in the dome of the liver (SUV max 2.8) does not demonstrate significant increased activity in comparison to background liver activity (SUV max 3.7). Diverticulosis. Calcification within the uterus likely fibroid. MUSCULOSKELETAL: No abnormal FDG activity. IMPRESSION: 1. FDG avid left upp er lobe lung nodule suspicious for underlying malignancy 2. Tree-in-bud and nodular patchy opacities in both lungs likely representing postinfectious/postinflam matory process. These can be followed to resolution on follow-up chest CT. 3. Indeterminate opa city versus nodule in the right middle lobe favored to represent benign process given lower FDG activity. This can be followed with chest CT to ensure clearing 4. No FDG avid lymphadenopathy Please note: The CT was acquired at a low radiation dose settings. The images are of nondiagnostic quality and used solely for purposes of attenuation correction and slice localization for the PET scan. If a diagnostic CT study is desired it must be ordered separately. -------- FINAL REPOR T -------- Dictated By: Miriam Lagos Dictated Date: 07/02 10:33 ET Assigned Physician: Miriam Lagos Reviewed and Electronically Signed By: Miriam Lagos Signed Date: 025 11:28 ET Workstation ID: [id number] Transcribed By: Self Edit Transcribed Date: 07/02/2024 10:[address] CHEST WO CONTRAST (LUNG-R ADS F/U) Reviewed date:07/01/2024 04:50:01 PM Interpretation: Performing Lab: Notes/Report: Note See Note [facility], a member of [facility] Patient Name: SELMA ESPINOSA Date of : 1950 Reason for Exam: s/p pulmonary nodule Exam Date: 06/21/2024 [id number] EST Report Status: Final Ordering Provider: REZA STEPHENS PCP: FRANCIS MAY History: 74 year-old current smoker, asymptomatic, for short-term follow-up of a low RADS 0 lesion. Comparison: 03/11/24 , 12/07/23, 11/24/22, 11/18/21 Technique: Helical volumetric imaging of the thorax was performed, using low-dose technique, without IV contrast. DLP: 170.39 mGy/cm CTDIvol: 4.83 mGy RunnerPlaceT Iterative reconstruc tion technique Findings: Lungs and Airways: The irregular solid, noncalcified left upper lobe nodule being followed has slowly increased in size since 2021 and now directly abuts the anterior pleural surface (images 58 - 66 series 3). Measurements of the lesion, taking into account its irregular shape, are as follows: Current: 11 x 7 mm 03/11/24: 10 x 6 mm 12/07/23: 9 x 6 mm 10/2722: 7 x 5 mm 11/18/21: 4 x 3 mm. Patchy peripheral ri ght upper lobe airspace opacities have improved since the most recent study as has patchy airspace disease in the lingula, consistent with a benign, infectious/inflammatory process. New nodular peripher al tree-in-bud opacity is present in the left lower lobe, almost certainly representing distal airways infection/mucous plugging. There is worsening confluent nodular opacity in the right middle lobe, with the largest nodule approximately 24 x 11 mm (image 29 series 3), probably infectious/inflammatory. The trachea and cent ral bronchial tree remains patent. Severe emphysematous destruction of the pulmonary parenchyma is again seen. A 4 mm solid, noncalcified nodule in the left upper lobe is unchanged (image 61 series 3). Pleura: No pleural o r pericardial effusions are seen. Base of neck, medias tinum and heart: The heart remains normal in size. Severe, three-vessel coronary artery calcification is again noted. No developing thoracic lymphadenopathy is seen. Soft tissues: The overlying soft tissues are unremarkable. Abdomen: This study was performed without contrast and with lower than standard dose. These factors reduce the sensitivity for detection of small lesions in the upper abdomen. A 4 mm hypoattenuating lesion in the dome of the liver is unchanged, possibly a cyst. IMPRESSION: Impression: 1. Growing, now 11 x 7 mm solid left upper lobe nodule, suspicious for indolent malignancy. PET/CT to be considered for further evaluation. 2. Worsening right m iddle lobe nodular opacities, the largest 24 x 11 mm, probably infectious/inflammatory, for which a follow-up low-dose CT is recommended in 3 months. 3. Improved patchy r ight upper and lingular airspace opacities being followed, consistent with a benign, infectious/inflammatory process. Lung-RADS Category: Lung-RADS 4B: Very suspicious nodule(s). Recommend further evaluation with FDG PET/[place]. [place] ([id number]) -------- FINAL REPOR T -------- Dictated By: Isatu Arroyo i Dictated Date: 06/22 15:34 ET Assigned Physician: Isatu Arcos Reviewed and Electronically Signed By: Isatu Arcos Signed Date: 025 15:55 ET Workstation ID: [id number] Transcribed By: Self Edit Transcribed Date: 06/22/2024 15:34 ET ACTIVATED PARTIAL THROMBOPLA STIN TIME Reviewed date:07/12/2024 03:39:23 PM Interpretation: Performing Lab: Notes/Report: aPTT 35.1 24.1-39.3 sec PROTHROMBIN TIME WITH INR Reviewed date:07/12/2024 03:39:19 PM Interpretation: Performing Lab: Notes/Report: Protime 10.8 10.6-13.9 sec INR 0.9 CBC WITH AUTO DIFFERENTIAL Reviewed date:07/12/2024 03:39:14 PM Interpretation: Performing Lab: Notes/Report: WBC 5.4 4.8-10.8 K/mcL RBC 5.00 3.80-4.80 M/mcL Hemoglobin 15.3 11.5-16.0 g/dL Hematocrit 45.1 35.0-47.0 % MCV 91.1 79.0-98.0 FL MCH 30.9 27.0-32.0 pcg MCHC 33.9 32.0-37.0 g/dL RDW 13.0 11.0-15.0 % Platelets 206 130-400 K/mcL MPV 11.2 7.0-11.0 FL NRBC 0.0 <1.0 % NRBC Absolute 0.00 <0.10 K/mcL Neutrophils Relative 62.5 Lymphocytes Relative 25.2 Monocytes Relative 9.9 Eosinophils Relative 1.1 Basophils Relative 0.9 Immature Granulocytes Relative 0.4 Neutrophils Absolute 3.34 1.50-7.00 K/mcL Lymphocytes Absolute 1.35 1.00-5.00 K/mcL Monocytes Absolute 0.53 0.20-1.00 K/mcL Eosinophils Absolute 0.06 0.00-0.50 K/mcL Basophils Absolute 0.05 0.00-0.20 K/mcL Immature Granulocytes Absolute 0.02 0.00-0.03 K/mcL TYPE AND SCREEN Reviewed date:07/13/2024 01:11:13 PM Interpretation: Performing Lab: Notes/Report: ABO Group O Rh Type Positive Antibody Screen Negative BASIC METABOLIC PANEL Reviewed date:07/12/2024 03:39:05 PM Interpretation: Performing Lab: Notes/Report: Sodium 136 133-145 mmol/L Potassium 4.1 3.5-5.5 mmol/L Chloride 108 96-110 mmol/L CO2 24 21-32 mmol/L Anion Gap 4 3-11 Glucose 90 70-100 mg/dL BUN 19 5-25 mg/dL Creatinine 1.01 0.50-1.10 mg/dL eGFR 58 >=60 mL/min/1.73m2 Calculation based on the?Chronic Kidney Disease Epidemiology Collaboration (CKD-EPI) equation refit?without adjustment for race. BUN/Creatinine Ratio 18.8 Calcium 9.3 8.5-10.5 mg/dL MG MAMMO DIGITAL SCREENING W ELIZABETH BILAT Reviewed date:04/12/2024 04:24:30 PM Interpretation: Performing Lab: Notes/Report: Note See Note [facility], a member of [facility] Patient Name: SELMA ESPINOSA Date of : 1950 Reason for Exam: Exam Date: 04/12/2024 [id number] EST Report Status: Final Ordering Provider: SELF REFERRAL SPPL PCP: BLANCO GUL EXAM: SCREENING MAMMOGRAPHY, BILATERAL HISTORY: SCREENING. Family history of breast cancer; daughter, maternal aunt COMPARISON: 10/15/2022 TECHNIQUE: Synthesiz ed CC and MLO projections of each breast. Tomosynthesis of each breast in the CC and MLO projections. ADDITIONAL IMAGING: None Computer-aided detec tion was employed with the iCAD profound AI 3-D. TISSUE DENSITY: Ther e are scattered areas of fibroglandular density. (BI-RADS category B) FINDINGS: RIGHT BREAST: No suspicious mass. No suspicious calcification. No distortion. No additional suspicious right breast findings LEFT BREAST: No suspicious mass. No suspicious calcification. No distortion. An asymmetry in the superficial outer left breast is less prominent than 10/15/2022. IMPRESSION: No mammographic evid ence of malignancy. No suspicious interv al change. A negative mammogram in the presence of a clinically suspicious palpable abnormality does not preclude the possibility of malignancy or alter the indications for biopsy. ASSESSMENT: BI-RADS 1: NEGATIVE RECOMMENDATION(S): 1: Routine screening mammogram BILATERAL in 1 year. -------- FINAL REPOR T -------- Dictated By: Roshan Welch Dictated Date: 04/12 08:58 ET Assigned Physician: Roshan Montaño Reviewed and Electronically Signed By: Roshan Montaño Signed Date: 025 09:04 ET Workstation ID: [id number] Transcribed By: Self Edit Transcribed Date: 04/12/2024 08:58 ET Reason For Referral Reason PVC- discuss cardiov ersion Please evaluate and treat Diagnosis 1 Paroxysmal A-fib (I4 8.0) Referral Organization [facility] Referring Provider First Name ok Referring Provider Last Name Ruddyformerly [facility] Referred Provider Specialty Cardiology General Notes Please call the deisy ent to schedule the appointment, Encounter created and SMS sent to the pt.Cristobal Charmain 09/27/2024 04:07:41 PM > Referral Priority Routine Reason please evaluate and treat Please evaluate and treat Diagnosis 1 Emphysema, unspecifi ed (J43.9) Referral Organization [facility] Referring Provider First Name Kayleigh Referring Provider Last Name Johnny Referred Provider Specialty Pulmonology General Notes Please call the deisy ent to schedule the appointment, Encounter created and SMS sent to the pt.Cristobal Sofia 09/27/2024 04:10:55 PM > Referral Priority Routine Reason Please evaluate and treat. Diagnosis 1 Ingrowing nail (L60. 0) Referral Organization [facility] Referring Provider First Name FRANCIS Referring Provider Last Name YADIRA Referring Provider Speciality Internal M edicine Referred Provider Specialty Podiatry General Notes Referral faxed to [facility]. Please call patient to schedule.Pedro Shannon 12/01/2024 12:13:32 PM > Referral Priority Routine Medications Medication SIG (Take, Route, Frequency, Duration) Notes Start Date End Date Status Eliquis 5 MG 1 tablet Orally Twic e a day Active Aspirin 81 MG 1 tablet Orally Once a day Active dilTIAZem HCl ER Beads 120 MG 1 capsule Orally Once a day; Duration: 30 days Active Atorvastatin Calcium 40 MG TAKE 1 TABLET BY MOUTH EVERY DAY; Duration: 90 Active Cipro 500 MG 1 tablet Orally twic e a day; Duration: 7 days 02/04/2022 Not-Taking Shingrix 50 MCG/0.5ML as directed Intramuscular once; Duration: 1 days 05/18/2018 Not-Taking Bactrim DS 800-160 MG 1 tablet Orally Tw ice a day; Duration: 10 day(s) 01/23/2022 Not-Tony ing Immunizations Vaccine Route Administration Date Status Comme nts COVID Unknown 07/08/2020 Administered Moderna COVID Unknown 08/05/2020 Administered Moderna COVID Moderna Unknown 03/03/2021 Administered Hep A, adult Unknown 03/16/2018 Administered received a t pharmacy Shingrix Unknown 12/31/2020 Administered Shingrix Unknown 03/27/2021 Administered Social History Tobacco Use: Social History Observation Description Date Details (start date - stop date) Current Smoker NA - NA Tobacco Use/Smoking Question Answer Notes Are you a current smoker How often do you smoke cigarettes? every day How many cigarettes a day do you smoke? 6-10 Alcohol Screen (Audit-C) Question Answer Notes Did you have a drink contain ing alcohol in the past year? Yes How often did you have a dri nk containing alcohol in the past year? Monthly or less (1 point) How many drinks did you have on a typical day when you were drinking in the past year? 1 or 2 drinks (0 point) Points 1 Interpretation Negative Problems Problem Type SNOMED Code ICD Code Onset Dates Problem Status W/U Status Risk Notes Problem Malignant neoplasm of upper lobe, bronchus or lung (523857037) Malignant neoplasm of upper lobe, left bronchus or lung (C34.12) Active confirmed Problem Mixed hyperlipidemia (571094951) Mixed hyperlipidemia (E78.2) Active confirmed Problem Tobacco user (924440652) Nicotine dependence, unspecified, uncomplicated (F17.200) Active confirmed Problem Tobacco user (823407869) Nicotine dependence, cigarettes, uncomplicated (F17.210) Active confirmed Problem Emphysema (04221825) Emphysema, unspecified (J43.9) Active confirmed Problem Age-related osteoporosis (193874368) Age-related osteoporosis without current pathological fracture (M81.0) Active confirmed Problem Chronic kidney disease stage 3 (disorder) (808080523) Chronic kidney disease, stage 3 (moderate) (N18.3) Active confirmed Problem Adult health examination (118031078) Encounter for general adult medical examination without abnormal findings (Z00.00) Active confirmed Problem Chronic kidney disease stage 3A (disorder) (897364428) Chronic kidney disease, stage 3a (N18.31) Active confirmed Problem Atrial fibrillation (48977685) Paroxysmal A-fib (I48.0) Active confirmed Vital Signs Heart Rate 76 /min 10/15/2024 Temperature 96.85 degrees Fahrenheit 10/15/2024 Blood pressure diastolic 64 mm Hg 10/15/2024 Oximetry 97 % 10/15/2024 Height 68.62 in 10/15/2024 Blood pressure systolic 110 mm Hg 10/15/2024 Weight 176.0 lbs 10/15/2024 BMI 26.28 kg/m2 10/15/2024 Encounters Encounter Location Date Provider Diagnosis [facility] [address] [place] [address] 09/24/2024 Lisa Turner Encounter for [facility] adult medical examination without abnormal findings Z00.00 ; Impaired fasting blood sugar R73.01 ; Chronic kidney disease, stage 3a N18.31 ; Paroxysmal A-fib I48.0 ; Mixed hyperlipidemia E78.2 ; Malignant neoplasm of upper lobe, left bronchus or lung C34.12 ; Nicotine dependence, unspecified, uncomplicated F17.200 and Emphysema, unspecified J43.[address] [place] [address] 10/15/2024 BLANCO [facility] Impaired fasting blo od sugar R73.01 ; Paroxysmal A-fib I48.0 ; Chronic kidney disease, stage 3a N18.31 ; Malignant neoplasm of upper lobe, left bronchus or lung C34.12 ; Mixed hyperlipidemia E78.2 ; Nicotine dependence, unspecified, uncomplicated F17.200 and Emphysema, unspecified J43.[address] [place] [address] 07/02/[address] [place] [address] 07/05/[address] [place] [address] 07/13/[address] [place] [address] 07/14/[address] [place] [address] 07/14/[address] [place] [address] 07/27/[address] [place] [address] 08/04/[address] [place] [address] 09/27/[address] [place] [address] 09/27/[address] [place] [address] 12/01/2024 FRANCIS ACKERMAN Assessments Encounter Date Diagnosis (ICD Code) Assessment Notes Treatment Notes Treatment Clinical Notes Section Notes 09/24/2024 Impaired fasting blood sugar (ICD-10 - R73.01) Ms. Espinosa is a 74-year-old lady with hyperlipidemia and CKD stage 3 here for annual physical. Plan as follows: Impaired fasting glucose: A1C of 5.8 and FBG of 109. Diet modification discussed. We will check A1c in 6 months. CKD stage 3a: She is not in volume overload, avoid NSAIDs and nephrotoxins. Paroxysmal Afib: Episodes started post-operatively. She was started on Eliquis and Cardizem CD 180mg. CHADVASc score of 3. She had echo done showed normal biatrial size, normal LV cavity size, wall thickness and systolic function LVEF 55-60 percent. No regional LV wall motion abnormalities. Right ventricular cavity size and systolic function with LVEF 55-60 percent. There is no hemodynamically significant valve disease. She is asymptomatic at this point. Patient was informed to follow-up in one year or as needed. Stress echo showed no abnormalities, There were no ECG changes and no arrhythmias with Regadenoson. She has been experiencing lightheadedness, BP is on the lower side, decreased Diltiazem dosage to 120mg and will follow up in 2-3weeks. Referred patient back to cardiology to discuss cardioversion. EKG is done in the office today with HR of 70bpm, No ST elevation/Depressi on. P-waves discernible. Malignant neoplasm of upper lobe s/p Left upper lobectomy and mediastinal lymphadenectomy: Stage 1B T2aN0 squamous cell lung cancer. No adjuvant chemotherapy is recommended at this point as per record, there is no documented survival advantage for stage 1B tumors less than 4cm. Adjuvant immunotherapy is not indicated as well for patients who did not receive adjuvant chemotherapy. She follows with Dr. Wright-Oncologist at [place]. She will be monitored with CT every 6 months to 2 years then annually. Nicotine dependence. She has a long-standing history of smoking for over 20 years smoking about 1 PPD. She quit about a month ago. HLD: Lipid panel is within normal range. Continue on Atorvastatin 20mg at bedtime. Emphysema: She does have a long-standing hx of COPD. Denies any past or recent exacerbation. She is not currently on inhalers and does not follow with [employer]. I donna refer patient to [facility] for further testing as there is no documented PFTs, also to discuss inhalers as it is still recommended in patients with COPD even if there is no hx of exacerbation, primarily for sx management and maintenance. She is UTD on age specific screenings and vaccination. C-scope done in 2022, repeat every 5 years. mammogram 2024. Normal will be repeated in one year. Vision: UTD Dermatology. No suspicious lesions at this point. HCP: Marvin Villagran [phone] and MOLST form provided General concerns have been discussed I have rendered the services for this patient under direct supervision of Dr. May, who did not see the patient but was available upon request 09/24/2024 Encounter for general adult medical examination without abnormal findings (ICD-10 - Z00.00) Ms. Espinosa is a 74-year-old lady with hyperlipidemia and CKD stage 3 here for annual physical. Plan as follows: Impaired fasting glucose: A1C of 5.8 and FBG of 109. Diet modification discussed. We will check A1c in 6 months. CKD stage 3a: She is not in volume overload, avoid NSAIDs and nephrotoxins. Paroxysmal Afib: Episodes started post-operatively. She was started on Eliquis and Cardizem CD 180mg. CHADVASc score of 3. She had echo done showed normal biatrial size, normal LV cavity size, wall thickness and systolic function LVEF 55-60 percent. No regional LV wall motion abnormalities. Right ventricular cavity size and systolic function with LVEF 55-60 percent. There is no hemodynamically significant valve disease. She is asymptomatic at this point. Patient was informed to follow-up in one year or as needed. Stress echo showed no abnormalities, There were no ECG changes and no arrhythmias with Regadenoson. She has been experiencing lightheadedness, BP is on the lower side, decreased Diltiazem dosage to 120mg and will follow up in 2-3weeks. Referred patient back to cardiology to discuss cardioversion. EKG is done in the office today with HR of 70bpm, No ST elevation/Depressi on. P-waves discernible. Malignant neoplasm of upper lobe s/p Left upper lobectomy and mediastinal lymphadenectomy: Stage 1B T2aN0 squamous cell lung cancer. No adjuvant chemotherapy is recommended at this point as per record, there is no documented survival advantage for stage 1B tumors less than 4cm. Adjuvant immunotherapy is not indicated as well for patients who did not receive adjuvant chemotherapy. She follows with Dr. Wright-Oncologist at [place]. She will be monitored with CT every 6 months to 2 years then annually. Nicotine dependence. She has a long-standing history of smoking for over 20 years smoking about 1 PPD. She quit about a month ago. HLD: Lipid panel is within normal range. Continue on Atorvastatin 20mg at bedtime. Emphysema: She does have a long-standing hx of COPD. Denies any past or recent exacerbation. She is not currently on inhalers and does not follow with [employer]. I donna refer patient to [facility] for further testing as there is no documented PFTs, also to discuss inhalers as it is still recommended in patients with COPD even if there is no hx of exacerbation, primarily for sx management and maintenance. She is UTD on age specific screenings and vaccination. C-scope done in 2022, repeat every 5 years. mammogram 2024. Normal will be repeated in one year. Vision: UTD Dermatology. No suspicious lesions at this point. HCP: Marvin Villagran [phone] and MOLST form provided General concerns have been discussed I have rendered the services for this patient under direct supervision of Dr. May, who did not see the patient but was available upon request 10/15/2024 Impaired fasting blood sugar (ICD-10 - R73.01) Ms. Espinosa is a 74-year-old lady with hyperlipidemia and CKD stage 3 here for annual physical. Plan as follows: Impaired fasting glucose: A1C of 5.8 and FBG of 109. Diet modification discussed. We will check A1c in 6 months. CKD stage 3a: She is not in volume overload, avoid NSAIDs and nephrotoxins. Paroxysmal Afib: Episodes started post-operatively. She was started on Eliquis and Cardizem CD 180mg. CHADVASc score of 3. She had echo done showed normal biatrial size, normal LV cavity size, wall thickness and systolic function LVEF 55-60 percent. No regional LV wall motion abnormalities. Right ventricular cavity size and systolic function with LVEF 55-60 percent. There is no hemodynamically significant valve disease. She is asymptomatic at this point. Patient was informed to follow-up in one year or as needed. Stress echo showed no abnormalities, There were no ECG changes and no arrhythmias with Regadenoson. She has been experiencing lightheadedness, BP is on the lower side, decreased Diltiazem dosage to 120mg and she has tolerated the medication fine and continue Referred patient back to cardiology to discuss cardioversion. Malignant neoplasm of upper lobe s/p Left upper lobectomy and mediastinal lymphadenectomy: Stage 1B T2aN0 squamous cell lung cancer. No adjuvant chemotherapy is recommended at this point as per record, there is no documented survival advantage for stage 1B tumors less than 4cm. Adjuvant immunotherapy is not indicated as well for patients who did not receive adjuvant chemotherapy. She follows with Dr. Wright-Oncologist at [place]. She will be monitored with CT every 6 months to 2 years then annually. Nicotine dependence. She has a long-standing history of smoking for over 20 years smoking about 1 PPD. She quit about a month ago. HLD: Lipid panel is within normal range. Continue on Atorvastatin 20mg at bedtime. Emphysema: She does have a long-standing hx of COPD. Denies any past or recent exacerbation. She is not currently on inhalers and does not follow with [employer]. I donna refer patient to [facility] for further testing as there is no documented PFTs, also to discuss inhalers as it is still recommended in patients with COPD even if there is no hx of exacerbation, primarily for sx management and maintenance. She is UTD on age specific screenings and vaccination. C-scope done in 2022, repeat every 5 years. mammogram 2024. Normal will be repeated in one year. Vision: UTD Dermatology. No suspicious lesions at this point. HCP: Marvin Villagran [phone] and MOLST form provided General concerns have been discussed 10/15/2024 Paroxysmal A-fib (ICD-10 - I48.0) Ms. Espinosa is a 74-year-old lady with hyperlipidemia and CKD stage 3 here for annual physical. Plan as follows: Impaired fasting glucose: A1C of 5.8 and FBG of 109. Diet modification discussed. We will check A1c in 6 months. CKD stage 3a: She is not in volume overload, avoid NSAIDs and nephrotoxins. Paroxysmal Afib: Episodes started post-operatively. She was started on Eliquis and Cardizem CD 180mg. CHADVASc score of 3. She had echo done showed normal biatrial size, normal LV cavity size, wall thickness and systolic function LVEF 55-60 percent. No regional LV wall motion abnormalities. Right ventricular cavity size and systolic function with LVEF 55-60 percent. There is no hemodynamically significant valve disease. She is asymptomatic at this point. Patient was informed to follow-up in one year or as needed. Stress echo showed no abnormalities, There were no ECG changes and no arrhythmias with Regadenoson. She has been experiencing lightheadedness, BP is on the lower side, decreased Diltiazem dosage to 120mg and she has tolerated the medication fine and continue Referred patient back to cardiology to discuss cardioversion. Malignant neoplasm of upper lobe s/p Left upper lobectomy and mediastinal lymphadenectomy: Stage 1B T2aN0 squamous cell lung cancer. No adjuvant chemotherapy is recommended at this point as per record, there is no documented survival advantage for stage 1B tumors less than 4cm. Adjuvant immunotherapy is not indicated as well for patients who did not receive adjuvant chemotherapy. She follows with Dr. Wright-Oncologist at [place]. She will be monitored with CT every 6 months to 2 years then annually. Nicotine dependence. She has a long-standing history of smoking for over 20 years smoking about 1 PPD. She quit about a month ago. HLD: Lipid panel is within normal range. Continue on Atorvastatin 20mg at bedtime. Emphysema: She does have a long-standing hx of COPD. Denies any past or recent exacerbation. She is not currently on inhalers and does not follow with [employer]. I donna refer patient to [facility] for further testing as there is no documented PFTs, also to discuss inhalers as it is still recommended in patients with COPD even if there is no hx of exacerbation, primarily for sx management and maintenance. She is UTD on age specific screenings and vaccination. C-scope done in 2022, repeat every 5 years. mammogram 2024. Normal will be repeated in one year. Vision: UTD Dermatology. No suspicious lesions at this point. HCP: Marvin Villagran [phone] and MOLST form provided General concerns have been discussed 09/24/2024 Chronic kidney disease, stage 3a (ICD-10 - N18.31) Ms. Espinosa is a 74-year-old lady with hyperlipidemia and CKD stage 3 here for annual physical. Plan as follows: Impaired fasting glucose: A1C of 5.8 and FBG of 109. Diet modification discussed. We will check A1c in 6 months. CKD stage 3a: She is not in volume overload, avoid NSAIDs and nephrotoxins. Paroxysmal Afib: Episodes started post-operatively. She was started on Eliquis and Cardizem CD 180mg. CHADVASc score of 3. She had echo done showed normal biatrial size, normal LV cavity size, wall thickness and systolic function LVEF 55-60 percent. No regional LV wall motion abnormalities. Right ventricular cavity size and systolic function with LVEF 55-60 percent. There is no hemodynamically significant valve disease. She is asymptomatic at this point. Patient was informed to follow-up in one year or as needed. Stress echo showed no abnormalities, There were no ECG changes and no arrhythmias with Regadenoson. She has been experiencing lightheadedness, BP is on the lower side, decreased Diltiazem dosage to 120mg and will follow up in 2-3weeks. Referred patient back to cardiology to discuss cardioversion. EKG is done in the office today with HR of 70bpm, No ST elevation/Depressi on. P-waves discernible. Malignant neoplasm of upper lobe s/p Left upper lobectomy and mediastinal lymphadenectomy: Stage 1B T2aN0 squamous cell lung cancer. No adjuvant chemotherapy is recommended at this point as per record, there is no documented survival advantage for stage 1B tumors less than 4cm. Adjuvant immunotherapy is not indicated as well for patients who did not receive adjuvant chemotherapy. She follows with Dr. Wright-Oncologist at [place]. She will be monitored with CT every 6 months to 2 years then annually. Nicotine dependence. She has a long-standing history of smoking for over 20 years smoking about 1 PPD. She quit about a month ago. HLD: Lipid panel is within normal range. Continue on Atorvastatin 20mg at bedtime. Emphysema: She does have a long-standing hx of COPD. Denies any past or recent exacerbation. She is not currently on inhalers and does not follow with [employer]. I donna refer patient to [facility] for further testing as there is no documented PFTs, also to discuss inhalers as it is still recommended in patients with COPD even if there is no hx of exacerbation, primarily for sx management and maintenance. She is UTD on age specific screenings and vaccination. C-scope done in 2022, repeat every 5 years. mammogram 2024. Normal will be repeated in one year. Vision: UTD Dermatology. No suspicious lesions at this point. HCP: Marvin Villagran [phone] and MOLST form provided General concerns have been discussed I have rendered the services for this patient under direct supervision of Dr. May, who did not see the patient but was available upon request 10/15/2024 Chronic kidney disease, stage 3a (ICD-10 - N18.31) Ms. Espinosa is a 74-year-old lady with hyperlipidemia and CKD stage 3 here for annual physical. Plan as follows: Impaired fasting glucose: A1C of 5.8 and FBG of 109. Diet modification discussed. We will check A1c in 6 months. CKD stage 3a: She is not in volume overload, avoid NSAIDs and nephrotoxins. Paroxysmal Afib: Episodes started post-operatively. She was started on Eliquis and Cardizem CD 180mg. CHADVASc score of 3. She had echo done showed normal biatrial size, normal LV cavity size, wall thickness and systolic function LVEF 55-60 percent. No regional LV wall motion abnormalities. Right ventricular cavity size and systolic function with LVEF 55-60 percent. There is no hemodynamically significant valve disease. She is asymptomatic at this point. Patient was informed to follow-up in one year or as needed. Stress echo showed no abnormalities, There were no ECG changes and no arrhythmias with Regadenoson. She has been experiencing lightheadedness, BP is on the lower side, decreased Diltiazem dosage to 120mg and she has tolerated the medication fine and continue Referred patient back to cardiology to discuss cardioversion. Malignant neoplasm of upper lobe s/p Left upper lobectomy and mediastinal lymphadenectomy: Stage 1B T2aN0 squamous cell lung cancer. No adjuvant chemotherapy is recommended at this point as per record, there is no documented survival advantage for stage 1B tumors less than 4cm. Adjuvant immunotherapy is not indicated as well for patients who did not receive adjuvant chemotherapy. She follows with Dr. Wright-Oncologist at [place]. She will be monitored with CT every 6 months to 2 years then annually. Nicotine dependence. She has a long-standing history of smoking for over 20 years smoking about 1 PPD. She quit about a month ago. HLD: Lipid panel is within normal range. Continue on Atorvastatin 20mg at bedtime. Emphysema: She does have a long-standing hx of COPD. Denies any past or recent exacerbation. She is not currently on inhalers and does not follow with [employer]. I donna refer patient to [facility] for further testing as there is no documented PFTs, also to discuss inhalers as it is still recommended in patients with COPD even if there is no hx of exacerbation, primarily for sx management and maintenance. She is UTD on age specific screenings and vaccination. C-scope done in 2022, repeat every 5 years. mammogram 2024. Normal will be repeated in one year. Vision: UTD Dermatology. No suspicious lesions at this point. HCP: Marvin Villagran [phone] and MOLST form provided General concerns have been discussed 09/24/2024 Paroxysmal A-fib (ICD-10 - I48.0) Ms. Espinosa is a 74-year-old lady with hyperlipidemia and CKD stage 3 here for annual physical. Plan as follows: Impaired fasting glucose: A1C of 5.8 and FBG of 109. Diet modification discussed. We will check A1c in 6 months. CKD stage 3a: She is not in volume overload, avoid NSAIDs and nephrotoxins. Paroxysmal Afib: Episodes started post-operatively. She was started on Eliquis and Cardizem CD 180mg. CHADVASc score of 3. She had echo done showed normal biatrial size, normal LV cavity size, wall thickness and systolic function LVEF 55-60 percent. No regional LV wall motion abnormalities. Right ventricular cavity size and systolic function with LVEF 55-60 percent. There is no hemodynamically significant valve disease. She is asymptomatic at this point. Patient was informed to follow-up in one year or as needed. Stress echo showed no abnormalities, There were no ECG changes and no arrhythmias with Regadenoson. She has been experiencing lightheadedness, BP is on the lower side, decreased Diltiazem dosage to 120mg and will follow up in 2-3weeks. Referred patient back to cardiology to discuss cardioversion. EKG is done in the office today with HR of 70bpm, No ST elevation/Depressi on. P-waves discernible. Malignant neoplasm of upper lobe s/p Left upper lobectomy and mediastinal lymphadenectomy: Stage 1B T2aN0 squamous cell lung cancer. No adjuvant chemotherapy is recommended at this point as per record, there is no documented survival advantage for stage 1B tumors less than 4cm. Adjuvant immunotherapy is not indicated as well for patients who did not receive adjuvant chemotherapy. She follows with Dr. Wright-Oncologist at [place]. She will be monitored with CT every 6 months to 2 years then annually. Nicotine dependence. She has a long-standing history of smoking for over 20 years smoking about 1 PPD. She quit about a month ago. HLD: Lipid panel is within normal range. Continue on Atorvastatin 20mg at bedtime. Emphysema: She does have a long-standing hx of COPD. Denies any past or recent exacerbation. She is not currently on inhalers and does not follow with [employer]. I donna refer patient to [facility] for further testing as there is no documented PFTs, also to discuss inhalers as it is still recommended in patients with COPD even if there is no hx of exacerbation, primarily for sx management and maintenance. She is UTD on age specific screenings and vaccination. C-scope done in 2022, repeat every 5 years. mammogram 2024. Normal will be repeated in one year. Vision: UTD Dermatology. No suspicious lesions at this point. HCP: Marvin Villagran [phone] and MOLST form provided General concerns have been discussed I have rendered the services for this patient under direct supervision of Dr. May, who did not see the patient but was available upon request 10/15/2024 Malignant neoplasm of upper lobe, left bronchus or lung (ICD-10 - C34.12) Ms. Espinosa is a 74-year-old lady with hyperlipidemia and CKD stage 3 here for annual physical. Plan as follows: Impaired fasting glucose: A1C of 5.8 and FBG of 109. Diet modification discussed. We will check A1c in 6 months. CKD stage 3a: She is not in volume overload, avoid NSAIDs and nephrotoxins. Paroxysmal Afib: Episodes started post-operatively. She was started on Eliquis and Cardizem CD 180mg. CHADVASc score of 3. She had echo done showed normal biatrial size, normal LV cavity size, wall thickness and systolic function LVEF 55-60 percent. No regional LV wall motion abnormalities. Right ventricular cavity size and systolic function with LVEF 55-60 percent. There is no hemodynamically significant valve disease. She is asymptomatic at this point. Patient was informed to follow-up in one year or as needed. Stress echo showed no abnormalities, There were no ECG changes and no arrhythmias with Regadenoson. She has been experiencing lightheadedness, BP is on the lower side, decreased Diltiazem dosage to 120mg and she has tolerated the medication fine and continue Referred patient back to cardiology to discuss cardioversion. Malignant neoplasm of upper lobe s/p Left upper lobectomy and mediastinal lymphadenectomy: Stage 1B T2aN0 squamous cell lung cancer. No adjuvant chemotherapy is recommended at this point as per record, there is no documented survival advantage for stage 1B tumors less than 4cm. Adjuvant immunotherapy is not indicated as well for patients who did not receive adjuvant chemotherapy. She follows with Dr. Wright-Oncologist at [place]. She will be monitored with CT every 6 months to 2 years then annually. Nicotine dependence. She has a long-standing history of smoking for over 20 years smoking about 1 PPD. She quit about a month ago. HLD: Lipid panel is within normal range. Continue on Atorvastatin 20mg at bedtime. Emphysema: She does have a long-standing hx of COPD. Denies any past or recent exacerbation. She is not currently on inhalers and does not follow with [employer]. I donna refer patient to [facility] for further testing as there is no documented PFTs, also to discuss inhalers as it is still recommended in patients with COPD even if there is no hx of exacerbation, primarily for sx management and maintenance. She is UTD on age specific screenings and vaccination. C-scope done in 2022, repeat every 5 years. mammogram 2024. Normal will be repeated in one year. Vision: UTD Dermatology. No suspicious lesions at this point. HCP: Marivn Villagran [phone] and MOLST form provided General concerns have been discussed 10/15/2024 Mixed hyperlipidemia (ICD-10 - E78.2) Ms. Espinosa is a 74-year-old lady with hyperlipidemia and CKD stage 3 here for annual physical. Plan as follows: Impaired fasting glucose: A1C of 5.8 and FBG of 109. Diet modification discussed. We will check A1c in 6 months. CKD stage 3a: She is not in volume overload, avoid NSAIDs and nephrotoxins. Paroxysmal Afib: Episodes started post-operatively. She was started on Eliquis and Cardizem CD 180mg. CHADVASc score of 3. She had echo done showed normal biatrial size, normal LV cavity size, wall thickness and systolic function LVEF 55-60 percent. No regional LV wall motion abnormalities. Right ventricular cavity size and systolic function with LVEF 55-60 percent. There is no hemodynamically significant valve disease. She is asymptomatic at this point. Patient was informed to follow-up in one year or as needed. Stress echo showed no abnormalities, There were no ECG changes and no arrhythmias with Regadenoson. She has been experiencing lightheadedness, BP is on the lower side, decreased Diltiazem dosage to 120mg and she has tolerated the medication fine and continue Referred patient back to cardiology to discuss cardioversion. Malignant neoplasm of upper lobe s/p Left upper lobectomy and mediastinal lymphadenectomy: Stage 1B T2aN0 squamous cell lung cancer. No adjuvant chemotherapy is recommended at this point as per record, there is no documented survival advantage for stage 1B tumors less than 4cm. Adjuvant immunotherapy is not indicated as well for patients who did not receive adjuvant chemotherapy. She follows with Dr. Wright-Oncologist at [place]. She will be monitored with CT every 6 months to 2 years then annually. Nicotine dependence. She has a long-standing history of smoking for over 20 years smoking about 1 PPD. She quit about a month ago. HLD: Lipid panel is within normal range. Continue on Atorvastatin 20mg at bedtime. Emphysema: She does have a long-standing hx of COPD. Denies any past or recent exacerbation. She is not currently on inhalers and does not follow with [employer]. I donna refer patient to [facility] for further testing as there is no documented PFTs, also to discuss inhalers as it is still recommended in patients with COPD even if there is no hx of exacerbation, primarily for sx management and maintenance. She is UTD on age specific screenings and vaccination. C-scope done in 2022, repeat every 5 years. mammogram 2024. Normal will be repeated in one year. Vision: UTD Dermatology. No suspicious lesions at this point. HCP: Marvin Villagran [phone] and MOLST form provided General concerns have been discussed 09/24/2024 Malignant neoplasm of upper lobe, left bronchus or lung (ICD-10 - C34.12) Ms. Espinosa is a 74-year-old lady with hyperlipidemia and CKD stage 3 here for annual physical. Plan as follows: Impaired fasting glucose: A1C of 5.8 and FBG of 109. Diet modification discussed. We will check A1c in 6 months. CKD stage 3a: She is not in volume overload, avoid NSAIDs and nephrotoxins. Paroxysmal Afib: Episodes started post-operatively. She was started on Eliquis and Cardizem CD 180mg. CHADVASc score of 3. She had echo done showed normal biatrial size, normal LV cavity size, wall thickness and systolic function LVEF 55-60 percent. No regional LV wall motion abnormalities. Right ventricular cavity size and systolic function with LVEF 55-60 percent. There is no hemodynamically significant valve disease. She is asymptomatic at this point. Patient was informed to follow-up in one year or as needed. Stress echo showed no abnormalities, There were no ECG changes and no arrhythmias with Regadenoson. She has been experiencing lightheadedness, BP is on the lower side, decreased Diltiazem dosage to 120mg and will follow up in 2-3weeks. Referred patient back to cardiology to discuss cardioversion. EKG is done in the office today with HR of 70bpm, No ST elevation/Depressi on. P-waves discernible. Malignant neoplasm of upper lobe s/p Left upper lobectomy and mediastinal lymphadenectomy: Stage 1B T2aN0 squamous cell lung cancer. No adjuvant chemotherapy is recommended at this point as per record, there is no documented survival advantage for stage 1B tumors less than 4cm. Adjuvant immunotherapy is not indicated as well for patients who did not receive adjuvant chemotherapy. She follows with Dr. Wright-Oncologist at [place]. She will be monitored with CT every 6 months to 2 years then annually. Nicotine dependence. She has a long-standing history of smoking for over 20 years smoking about 1 PPD. She quit about a month ago. HLD: Lipid panel is within normal range. Continue on Atorvastatin 20mg at bedtime. Emphysema: She does have a long-standing hx of COPD. Denies any past or recent exacerbation. She is not currently on inhalers and does not follow with [employer]. I donna refer patient to [facility] for further testing as there is no documented PFTs, also to discuss inhalers as it is still recommended in patients with COPD even if there is no hx of exacerbation, primarily for sx management and maintenance. She is UTD on age specific screenings and vaccination. C-scope done in 2022, repeat every 5 years. mammogram 2024. Normal will be repeated in one year. Vision: UTD Dermatology. No suspicious lesions at this point. HCP: Marvin Villagran [phone] and MOLST form provided General concerns have been discussed I have rendered the services for this patient under direct supervision of Dr. May, who did not see the patient but was available upon request 09/24/2024 Mixed hyperlipidemia (ICD-10 - E78.2) Ms. Espinosa is a 74-year-old lady with hyperlipidemia and CKD stage 3 here for annual physical. Plan as follows: Impaired fasting glucose: A1C of 5.8 and FBG of 109. Diet modification discussed. We will check A1c in 6 months. CKD stage 3a: She is not in volume overload, avoid NSAIDs and nephrotoxins. Paroxysmal Afib: Episodes started post-operatively. She was started on Eliquis and Cardizem CD 180mg. CHADVASc score of 3. She had echo done showed normal biatrial size, normal LV cavity size, wall thickness and systolic function LVEF 55-60 percent. No regional LV wall motion abnormalities. Right ventricular cavity size and systolic function with LVEF 55-60 percent. There is no hemodynamically significant valve disease. She is asymptomatic at this point. Patient was informed to follow-up in one year or as needed. Stress echo showed no abnormalities, There were no ECG changes and no arrhythmias with Regadenoson. She has been experiencing lightheadedness, BP is on the lower side, decreased Diltiazem dosage to 120mg and will follow up in 2-3weeks. Referred patient back to cardiology to discuss cardioversion. EKG is done in the office today with HR of 70bpm, No ST elevation/Depressi on. P-waves discernible. Malignant neoplasm of upper lobe s/p Left upper lobectomy and mediastinal lymphadenectomy: Stage 1B T2aN0 squamous cell lung cancer. No adjuvant chemotherapy is recommended at this point as per record, there is no documented survival advantage for stage 1B tumors less than 4cm. Adjuvant immunotherapy is not indicated as well for patients who did not receive adjuvant chemotherapy. She follows with Dr. Wright-Oncologist at [place]. She will be monitored with CT every 6 months to 2 years then annually. Nicotine dependence. She has a long-standing history of smoking for over 20 years smoking about 1 PPD. She quit about a month ago. HLD: Lipid panel is within normal range. Continue on Atorvastatin 20mg at bedtime. Emphysema: She does have a long-standing hx of COPD. Denies any past or recent exacerbation. She is not currently on inhalers and does not follow with [employer]. I donna refer patient to [facility] for further testing as there is no documented PFTs, also to discuss inhalers as it is still recommended in patients with COPD even if there is no hx of exacerbation, primarily for sx management and maintenance. She is UTD on age specific screenings and vaccination. C-scope done in 2022, repeat every 5 years. mammogram 2024. Normal will be repeated in one year. Vision: UTD Dermatology. No suspicious lesions at this point. HCP: Marvin Villagran [phone] and MOLST form provided General concerns have been discussed I have rendered the services for this patient under direct supervision of Dr. May, who did not see the patient but was available upon request 10/15/2024 Nicotine dependence, unspecified, uncomplicated (ICD-10 - F17.200) Ms. Espinosa is a 74-year-old lady with hyperlipidemia and CKD stage 3 here for annual physical. Plan as follows: Impaired fasting glucose: A1C of 5.8 and FBG of 109. Diet modification discussed. We will check A1c in 6 months. CKD stage 3a: She is not in volume overload, avoid NSAIDs and nephrotoxins. Paroxysmal Afib: Episodes started post-operatively. She was started on Eliquis and Cardizem CD 180mg. CHADVASc score of 3. She had echo done showed normal biatrial size, normal LV cavity size, wall thickness and systolic function LVEF 55-60 percent. No regional LV wall motion abnormalities. Right ventricular cavity size and systolic function with LVEF 55-60 percent. There is no hemodynamically significant valve disease. She is asymptomatic at this point. Patient was informed to follow-up in one year or as needed. Stress echo showed no abnormalities, There were no ECG changes and no arrhythmias with Regadenoson. She has been experiencing lightheadedness, BP is on the lower side, decreased Diltiazem dosage to 120mg and she has tolerated the medication fine and continue Referred patient back to cardiology to discuss cardioversion. Malignant neoplasm of upper lobe s/p Left upper lobectomy and mediastinal lymphadenectomy: Stage 1B T2aN0 squamous cell lung cancer. No adjuvant chemotherapy is recommended at this point as per record, there is no documented survival advantage for stage 1B tumors less than 4cm. Adjuvant immunotherapy is not indicated as well for patients who did not receive adjuvant chemotherapy. She follows with Dr. Wright-Oncologist at [place]. She will be monitored with CT every 6 months to 2 years then annually. Nicotine dependence. She has a long-standing history of smoking for over 20 years smoking about 1 PPD. She quit about a month ago. HLD: Lipid panel is within normal range. Continue on Atorvastatin 20mg at bedtime. Emphysema: She does have a long-standing hx of COPD. Denies any past or recent exacerbation. She is not currently on inhalers and does not follow with [employer]. I donna refer patient to [facility] for further testing as there is no documented PFTs, also to discuss inhalers as it is still recommended in patients with COPD even if there is no hx of exacerbation, primarily for sx management and maintenance. She is UTD on age specific screenings and vaccination. C-scope done in 2022, repeat every 5 years. mammogram 2024. Normal will be repeated in one year. Vision: UTD Dermatology. No suspicious lesions at this point. HCP: Marvin Villagran [phone] and MOLST form provided General concerns have been discussed 10/15/2024 Emphysema, unspecified (ICD-10 - J43.9) Ms. Espinosa is a 74-year-old lady with hyperlipidemia and CKD stage 3 here for annual physical. Plan as follows: Impaired fasting glucose: A1C of 5.8 and FBG of 109. Diet modification discussed. We will check A1c in 6 months. CKD stage 3a: She is not in volume overload, avoid NSAIDs and nephrotoxins. Paroxysmal Afib: Episodes started post-operatively. She was started on Eliquis and Cardizem CD 180mg. CHADVASc score of 3. She had echo done showed normal biatrial size, normal LV cavity size, wall thickness and systolic function LVEF 55-60 percent. No regional LV wall motion abnormalities. Right ventricular cavity size and systolic function with LVEF 55-60 percent. There is no hemodynamically significant valve disease. She is asymptomatic at this point. Patient was informed to follow-up in one year or as needed. Stress echo showed no abnormalities, There were no ECG changes and no arrhythmias with Regadenoson. She has been experiencing lightheadedness, BP is on the lower side, decreased Diltiazem dosage to 120mg and she has tolerated the medication fine and continue Referred patient back to cardiology to discuss cardioversion. Malignant neoplasm of upper lobe s/p Left upper lobectomy and mediastinal lymphadenectomy: Stage 1B T2aN0 squamous cell lung cancer. No adjuvant chemotherapy is recommended at this point as per record, there is no documented survival advantage for stage 1B tumors less than 4cm. Adjuvant immunotherapy is not indicated as well for patients who did not receive adjuvant chemotherapy. She follows with Dr. Wright-Oncologist at [place]. She will be monitored with CT every 6 months to 2 years then annually. Nicotine dependence. She has a long-standing history of smoking for over 20 years smoking about 1 PPD. She quit about a month ago. HLD: Lipid panel is within normal range. Continue on Atorvastatin 20mg at bedtime. Emphysema: She does have a long-standing hx of COPD. Denies any past or recent exacerbation. She is not currently on inhalers and does not follow with [employer]. I donna refer patient to [facility] for further testing as there is no documented PFTs, also to discuss inhalers as it is still recommended in patients with COPD even if there is no hx of exacerbation, primarily for sx management and maintenance. She is UTD on age specific screenings and vaccination. C-scope done in 2022, repeat every 5 years. mammogram 2024. Normal will be repeated in one year. Vision: UTD Dermatology. No suspicious lesions at this point. HCP: Marvin Villagran [phone] and MOLST form provided General concerns have been discussed 09/24/2024 Nicotine dependence, unspecified, uncomplicated (ICD-10 - F17.200) Ms. Espinosa is a 74-year-old lady with hyperlipidemia and CKD stage 3 here for annual physical. Plan as follows: Impaired fasting glucose: A1C of 5.8 and FBG of 109. Diet modification discussed. We will check A1c in 6 months. CKD stage 3a: She is not in volume overload, avoid NSAIDs and nephrotoxins. Paroxysmal Afib: Episodes started post-operatively. She was started on Eliquis and Cardizem CD 180mg. CHADVASc score of 3. She had echo done showed normal biatrial size, normal LV cavity size, wall thickness and systolic function LVEF 55-60 percent. No regional LV wall motion abnormalities. Right ventricular cavity size and systolic function with LVEF 55-60 percent. There is no hemodynamically significant valve disease. She is asymptomatic at this point. Patient was informed to follow-up in one year or as needed. Stress echo showed no abnormalities, There were no ECG changes and no arrhythmias with Regadenoson. She has been experiencing lightheadedness, BP is on the lower side, decreased Diltiazem dosage to 120mg and will follow up in 2-3weeks. Referred patient back to cardiology to discuss cardioversion. EKG is done in the office today with HR of 70bpm, No ST elevation/Depressi on. P-waves discernible. Malignant neoplasm of upper lobe s/p Left upper lobectomy and mediastinal lymphadenectomy: Stage 1B T2aN0 squamous cell lung cancer. No adjuvant chemotherapy is recommended at this point as per record, there is no documented survival advantage for stage 1B tumors less than 4cm. Adjuvant immunotherapy is not indicated as well for patients who did not receive adjuvant chemotherapy. She follows with Dr. Wright-Oncologist at [place]. She will be monitored with CT every 6 months to 2 years then annually. Nicotine dependence. She has a long-standing history of smoking for over 20 years smoking about 1 PPD. She quit about a month ago. HLD: Lipid panel is within normal range. Continue on Atorvastatin 20mg at bedtime. Emphysema: She does have a long-standing hx of COPD. Denies any past or recent exacerbation. She is not currently on inhalers and does not follow with [employer]. I donna refer patient to [facility] for further testing as there is no documented PFTs, also to discuss inhalers as it is still recommended in patients with COPD even if there is no hx of exacerbation, primarily for sx management and maintenance. She is UTD on age specific screenings and vaccination. C-scope done in 2022, repeat every 5 years. mammogram 2024. Normal will be repeated in one year. Vision: UTD Dermatology. No suspicious lesions at this point. HCP: Marvin Villagran [phone] and MOLST form provided General concerns have been discussed I have rendered the services for this patient under direct supervision of Dr. May, who did not see the patient but was available upon request 09/24/2024 Emphysema, unspecified (ICD-10 - J43.9) Ms. Espinosa is a 74-year-old lady with hyperlipidemia and CKD stage 3 here for annual physical. Plan as follows: Impaired fasting glucose: A1C of 5.8 and FBG of 109. Diet modification discussed. We will check A1c in 6 months. CKD stage 3a: She is not in volume overload, avoid NSAIDs and nephrotoxins. Paroxysmal Afib: Episodes started post-operatively. She was started on Eliquis and Cardizem CD 180mg. CHADVASc score of 3. She had echo done showed normal biatrial size, normal LV cavity size, wall thickness and systolic function LVEF 55-60 percent. No regional LV wall motion abnormalities. Right ventricular cavity size and systolic function with LVEF 55-60 percent. There is no hemodynamically significant valve disease. She is asymptomatic at this point. Patient was informed to follow-up in one year or as needed. Stress echo showed no abnormalities, There were no ECG changes and no arrhythmias with Regadenoson. She has been experiencing lightheadedness, BP is on the lower side, decreased Diltiazem dosage to 120mg and will follow up in 2-3weeks. Referred patient back to cardiology to discuss cardioversion. EKG is done in the office today with HR of 70bpm, No ST elevation/Depressi on. P-waves discernible. Malignant neoplasm of upper lobe s/p Left upper lobectomy and mediastinal lymphadenectomy: Stage 1B T2aN0 squamous cell lung cancer. No adjuvant chemotherapy is recommended at this point as per record, there is no documented survival advantage for stage 1B tumors less than 4cm. Adjuvant immunotherapy is not indicated as well for patients who did not receive adjuvant chemotherapy. She follows with Dr. Wright-Oncologist at [place]. She will be monitored with CT every 6 months to 2 years then annually. Nicotine dependence. She has a long-standing history of smoking for over 20 years smoking about 1 PPD. She quit about a month ago. HLD: Lipid panel is within normal range. Continue on Atorvastatin 20mg at bedtime. Emphysema: She does have a long-standing hx of COPD. Denies any past or recent exacerbation. She is not currently on inhalers and does not follow with [employer]. I donna refer patient to [facility] for further testing as there is no documented PFTs, also to discuss inhalers as it is still recommended in patients with COPD even if there is no hx of exacerbation, primarily for sx management and maintenance. She is UTD on age specific screenings and vaccination. C-scope done in 2022, repeat every 5 years. mammogram 2024. Normal will be repeated in one year. Vision: UTD Dermatology. No suspicious lesions at this point. HCP: Marvin Villagran [phone] and MOLST form provided General concerns have been discussed I have rendered the services for this patient under direct supervision of Dr. May, who did not see the patient but was available upon request Plan Of Treatment Pending Test Test Name Order Date CT Scan : Wrist 10/14/2017 COMPREHENSIVE METABOLIC PANEL 02/04/2022 HEMOGLOBIN A1C 09/19/2021 HEMOGLOBIN A1C 10/30/2017 LIPID PANEL 02/04/2022 MICROALBUMIN, URINE 02/04/2022 MICROALBUMIN, URINE 09/21/2021 Xray: Hand Tsmag-Rymivyau-Xsx 3 Vws 05/2017 Xray: Shoulder Left-Min 2 Vws 09/30/2017 Xray: Shoulder Left-Min 2 Vws 09/30/2017 Xray: Wrist Right-Min 3 Vws 09/30/2017 Future Test Test Name Order Date Hemoglobin [id number] 09/24/2024 Next Appt Details Provider Name:FRANCIS MAY , 04/13/2025 08:45:00 AM, [address] [place] [address], [phone], Provider Name:Basilia Garcia, 0 10/26/2025 11:30:00 AM, [address] [place] [address], [phone], Insurance Providers Payer Name Payer Address Payer Phone Subscriber Number Group Number Insured Name Patient Relationship to Insured Coverage Start Date Coverage End Date [employer] Preferred [address] [place] [address] [id number] [facility] - [id number] E[address] Self - patient is the insured 9 Medical (General) History Medical History History ICD Code hyperlipidemia CKD, stage 3 paroxysmal Afib small cell lung cancer s/p AMILCAR lobectomy Surgical History Surgery Date(Month/Year) cataract removal left upper lobectomy-Dr Kirkland 06/2024
--- OUTSIDE RECORDS SUMMARY | 2025-01-03 17:29 | XMS_ITS | Data Portability ---
Author Organization [place] - [facility], Allergy Address [address] [address] Care Team Providers Care Optoelectronic Technician Name Role Phone FRANCIS MAY Referring Provider Assessment Encounter Date Assessment Date Assessment LastModified by Organization Details LastModified Time 09/12/2023 09/12/2023 Patient appears to have sustained a nasal fracture that is minimally displaced. There is still significant swelling and deformity. At this point the septum is deviated to the right side and she has no significant nasal obstruction. We discussed the indication for surgical intervention would be if there was any significant deformity. She will contact the office if she has any concerns next week. [email or web address] Not available 09/12/2023 16:29:36 Plan of Treatment Reminders Order Date Submit Date Provider Last Modified By Organization Details Last Modified Time Details Appointments None record ed. Lab None record ed. Referral None record ed. Procedures None record ed. Surgeries None record ed. Imaging None record ed. Medication Orders None record ed. Patient TargetsNo targets recorded. Patient InstructionsNo instructions recorded. Reason for Referral None Reported. Problems Name Problem SNOMED Code Status Onset Date Resolution Date Notes Provider Name and Address Organization Details Recorded Time Deviated nasal septum 282669474 Active 024 RKEHA COLON MD 100 [facility], [place], [phone] , [place] - [facility] 4 16:32:00 Closed fracture of nasal bones 00360680 Active 024 REKHA COLON MD 100 [facility] [address], [phone] , [place] - [facility] 16:32:37 Problem Notes None recorded. Procedures Surgical History Date Name Laterality Status Provider Name and Address Organization Details Recorded Time extraction of cataract completed Catina Woodward [place] [facility] 09/12/2023 15:22:08 procedure on wrist completed Catina Woodward [facility] 09/12/2023 15:22:22 Imaging Results None recorded. Procedure Notes None recorded. Medical Equipment None Reported. Allergies No known drug allergies Medications Name Sig Start Date Stop Date Status Note LastModified by Organization Details LastModified Time atorvastati n 40 mg tablet TAKE 1 TABLET BY MOUTH EVERY DAY active Not Available Not Available No t Available amoxicillin 875 mg-potassiu m clavulanate 125 mg tablet TAKE 1 TABLET BY MOUTH TWICE DAILY DIRECTED OR UNTIL ALL TAKEN 09/11 completed Not Available Not Available Not Available Vitals Date Recorded Body height Body mass index (BMI) Body weight Provider Name and Address Organization Details Last Updated DateTime 09/12/2023 172.72 cm 28.6 kg/m2 30382.37 g Catina Woodward [facility] 09/12/2023 15:21:42 Social History None recorded. Functional Status None recorded. Mental Status None recorded. Family History Nothing Reported. Medical History Condition Response Emphysema Y High Cholesterol Y Kidney Disease Y Gynecological HistoryNo gynecological history recorded. Obstetrics History GPAL:G 0 P 0 0 0 0 Past Encounters Encounter ID Performer Location Encounter Start Date Encounter Closed Date Diagnosis/Indication Diagnosis SNOMED-CT Code Diagnosis ICD10 Code Diagnosis IMO Codes Diagnosis Note [id number] REKHA COLON MD [facility] [address] [address] 09/12/2023 14:47:05 09/12/2023 16:31:46 Closed fracture of nasal bones 09729308 S02.2XXA Deviated nasal septum 12 6468821 J34.2 Falling injury 279079046 W19.XXXA Health Concerns Section Related Observation LastModified by Organization Detai ls LastModified Time None Recorded Concern Status LastModified by Organization Details LastModified Time None Recorded Advance Directives Directive None Recorded Payers Insurance Date Sequence Insurance Name Policy Number Policy Muro Covered Member ID Muro Member ID Guarantor Name 09/18/2023 1 [facility] [employer] [place] Caro [id number] Selma Caro Notes Date Note Type Note Provider Name and Address Organization Details Recorded Time 09/12/2023 text/html ROS as noted in the HPI Patient was [place] [employer] [place] 4 days ago and tripped on a metal threshold on the tile floor. She struck her face and landed on her nose. She was seen at the local hospital and referred for evaluation of nasal fracture. She notes significant swelling across the nasal bridge but at this point she feels it is relatively straight. She had breathing difficulties and pain. Those are improving. She feels her eyelids are swollen but that has slowly improved. Denies any visual difficulty, headaches or concussion symptoms no chest pain or shortness of breath REKHA SYED MD [address] [place] [address], [phone], [facility] - [facility] 09/12/2023 16:32:53 OBGyn Episode No OBEpisode recorded.
== END 2025-01-03 15:30 | disposition home or self-care (01) ==
LOC: HO.HPS 15:08
PROVIDERS: PCP Hospitalist; Visit Provider Hospitalist
DX: C34.92 Malignant neoplasm of unspecified part of left bronchus or lung (principal); J41.1 Mucopurulent chronic bronchitis; F17.200 Nicotine dependence, unspecified, uncomplicated
CPT/HCPCS: 99204

== ENCOUNTER → 2025-01-03 15:08 | Outpatient (BNVA) | payer MEDICARE, SELFPAY | PROVIDERS: Visit Provider Hospitalist | DX: J41.1 Mucopurulent chronic bronchitis (principal); C34.92 Malignant neoplasm of unspecified part of left bronchus or lung; F17.200 Nicotine dependence, unspecified, uncomplicated; Z71.6 Tobacco abuse counseling | CPT/HCPCS: 99202 ==